=== PATIENT | male | born 1930 | race Caucasian/White ===

== ENCOUNTER → 2016-08-19 | Day surgery (SDC) | payer OTHER | END | disposition home or self-care (01) | LOC: FIMAGING 13:37 | PROVIDERS: ATTEND Internal Medicine | PROC: 3E0R3KZ Introduction of Other Diagnostic Substance into Spinal Canal, Percutaneous Approach (ICD-10-PCS; principal; 2016-08-19) | DX: M54.16 Radiculopathy, lumbar region (principal); M48.06 Spinal stenosis, lumbar region; M54.32 Sciatica, left side; I25.10 Atherosclerotic heart disease of native coronary artery without angina pectoris; Z95.1 Presence of aortocoronary bypass graft ==

== ENCOUNTER 2016-08-20 10:26 | Inpatient (IN) | payer OTHER ==
--- NOTE | 2016-08-20 10:56 | CPEKG ---
Heart Rate: 58 RR Interval: 1034 P-R Interval: 216 QRSD Interval: 136 QT Interval: 404 QTC Interval: 397 P Rock[place]: -7 QRS [place]: -59 T Wave Rock[place]: 152 EKG Severity - ABNORMAL ECG - EKG Impression: SINUS RHYTHM EKG Impression: VENTRICULAR TRIGEMINY EKG Impression: LEFT BUNDLE BRANCH BLOCK Electronically Signed By: Dinesh Fierro 20-Aug-2016 11:55:39
[2016-08-20 11:08] LABS: % IMMATURE GRANULYOCYTES 0.4 % (0.0-1.1); ABSOLUTE IMMATURE GRANULOCYTES 0.06 10^3/uL (0.00-0.10); ADD DIFF? NO; ADD MORPH? NO; ADD SCAN? NO; ATYPICAL LYMPHOCYTE FLAG 0 (0-99); FRAGMENT RBC FLAG 0 (0-99); HEMATOCRIT 46.6 % (40.0-51.0); HEMOGLOBIN 15.5 g/dL (13.7-17.5); LEFT SHIFT FLG 0 (0-99); LIPEMIA HEMOLYSIS FLAG 80 (0-99); MEAN CELL HEMOGLOBIN 30.6 pg (27.9-34.1); MEAN CELL HEMOGLOBIN CONCENTR. 33.3 g/dL (32.4-36.7); MEAN CELL VOLUME 91.9 fL (81.5-99.8); MEAN PLATELET VOLUME 9.9 fL (8.7-11.7); PLATELET CLUMPS FLAG 0 (0-99); PLATELET COUNT 294 10^3/uL (150-400); RED BLOOD CELL COUNT 5.07 10^6/uL (4.40-6.38); RED CELL DISTRIBUTION WIDTH 13.2 % (11.5-15.2)
[2016-08-20 11:23] LABS: ANION GAP 12 mEq/L (8-16); CALCIUM 9.8 mg/dL (8.5-10.4); CARBON DIOXIDE 24 mEq/l (22-31); CHLORIDE 102 mEq/L (97-110); CREATININE 1.3 mg/dL (0.7-1.3); GLOMERULAR FILTRATION RATE 52; GLUCOSE 122 mg/dL (70-100); POTASSIUM 4.8 mEq/L (3.5-5.2); SODIUM 138 mEq/L (134-144)
[2016-08-20 11:35] LABS: TROPONIN I 0.069 ng/mL (0-0.034)
[2016-08-20] MEDS ORDERED: ASPIRIN 81 MG CHEWABLE TAB PO ONE (11:42)
--- NOTE | 2016-08-20 11:53 | EDPHY ---
H & P Stated Complaint: chest pain this AM, now resolved Time Seen by Provider: 08/20/16 10:26 HPI/ROS: CHIEF COMPLAINT: Chest pain-resolved HISTORY OF PRESENT ILLNESS: The patient presents to the ED after an episode of resolved chest pain. The patient reports a sharp left substernal repeating chest pain that occurred earlier today. He initially attributed the symptoms to indigestion however they returned and were stronger. The patient does report that he had an epidural steroid injection done yesterday but otherwise has been asymptomatic. He is relatively active without symptoms of exertional chest pain or shortness of breath. The patient does have a history of a CABG 10 years ago and denies significant intervention since his surgery. The patient denies any history of fever, cough or congestion. He does have a history of an arrhythmia. REVIEW OF SYSTEMS: A comprehensive 10 point review of systems is otherwise negative aside from elements mentioned in the history of present illness. 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 - Physical Exam Exam: General Appearance: Alert, no distress Eyes: Pupils equal and round no pallor or injection ENT, Mouth: Mucous membranes moist Respiratory: There are no retractions, lungs are clear to auscultation Cardiovascular: Regular rate and rhythm Gastrointestinal: Abdomen is soft and nontender, no masses, bowel sounds normal Neurological: A&O, normal motor function, normal sensory exam, normal cranial nerves Skin: Warm and dry, no rashes, specifically no evidence of zoster Musculoskeletal: Neck is supple nontender Extremities: symmetrical, full range of motion Constitutional: Initial Vital Signs Temperature (C) 36.5 C 08/20/16 10:41 Heart Rate 64 08/20/16 10:41 Respiratory Rate 17 08/20/16 10:41 Blood Pressure 106/72 08/20/16 10:41 O2 Sat (%) 96 08/20/16 10:41 O2 Delivery Mode Room Air Allergies/Adverse Reactions: codeine Allergy (Verified 09/11/13 21:11) Home Medications: Medication Instructions Recorded CARVEDILOL 6.25 mg PO DAILY@0810/08/10 Calcium Carbonate [CALTRATE 600] 1,200 mg PO DAILY 10/08/10 Digoxin [Lanoxin 0.125 mg] 250 mcg PO MOTUWETHFRSA@179910/08/10 Ezetimibe/Simvastatin [Vytorin 1 each PO DAILY@179910/08/10 10-80 mg Tablet] Nitroglycerin [Nitrostat 0.4 mg 0.4 mg SL PRN PRN 10/08/10 (*)] Omeprazole [Prilosec 20 mg] 20 mg PO DAILY@179910/08/10 Ramipril [Altace 5mg (*)] 5 mg PO MOWEFR@89910/08/10 Tamsulosin HCl [Flomax 0.4 MG (*)] 0.4 mg PO DAILY@179910/08/10 Aspirin [Aspirin 325 mg (*)] 325 mg PO DAILY@179909/11/13 Carvedilol [Coreg (*)] 12.5 mg PO DAILY@179909/11/13 Mometasone 220Mcg Inhaler [Asmanex 2 puffs IH BID 09/11/13 Inh (*)] Multivitamins [Multivitamin (*)] 1 each PO DAILY@179909/11/13 Medical Decision Making - Diagnostics EKG Interpretation: EKG: Complete interpretation has been separately recorded in the [facility] archive. Summary impression: Sinus rhythm, rate 58, left bundle branch block, ventricular trigeminy, ST segment depression noted in the lateral leads Imaging Results: Imaging Impressions Chest X-Ray 08/20/16 11:04 Impression: 1. No acute pulmonary disease. 2. Consider chest two views when the patient's medical condition permits. ED Course/Re-evaluation: The patient presents to the ED after an episode of unprovoked chest pain at rest. The patient is noted to have an indeterminately elevated troponin. He has nonspecific changes noted on his EKG. He does have a history of a left bundle branch pattern noted on his prior EKG. The patient did receive a 325 mg dose of aspirin. He had a brief episode of recurrent chest pain in the emergency department. The patient will require admission to the hospital for observation and serial troponin testing. Consultation was made with the hospitalist service. The patient will be admitted by Dr. Joaquin Dexter. I re-evaluated the patient at noon. I spoke with him about his workup plans for admission. The patient is currently chest pain-free. He did have a recurrent brief episode of self-limited chest pain while in the emergency department. The patient has no evidence of a STEMI on his current EKG. He will be admitted for additional testing. Consultation with the patient's regular Cardiology service at [facility] will be deferred to the admitting hospitalist. Differential Diagnosis: Differential diagnosis considered includes acute coronary syndrome, herpes zoster, myofascial strain, pneumonia, pneumothorax - Data Points Medications Given: Discontinued Medications Aspirin (Aspirin) 324 mg PO EDNOW ONE Stop: 08/20/16 11:43 Last Admin: 08/20/16 11:47 Dose: Not Given Departure - Departure Disposition: [facility] Inpatient Acute Clinical Impression: Chest pain Qualifiers: Chest pain type: precordial pain Qualified Code(s): R07.2 - Precordial pain Condition: Good
[2016-08-20] MEDS ORDERED: ONDANSETRON 4 MG/2 ML VIAL IVP PRN (13:48)
[2016-08-20] MEDS ORDERED: oxyCODONE IR 5 MG TAB PO PRN (13:48)
[2016-08-20] MEDS ORDERED: ACETAMINOPHEN 325 MG TAB PO PRN (13:48)
[2016-08-20] MEDS ORDERED: ONDANSETRON DISINTEGRATING 4 MG TAB PO PRN (13:48)
[2016-08-20] MEDS ORDERED: METOCLOPRAMIDE 10 MG/2 ML VIAL IVP PRN (17:55)
[2016-08-20] MEDS ORDERED: GOLYTELY 4000 ML BTL PO ONE (17:55)
[2016-08-20] MEDS ORDERED: SIMVASTATIN PO SCH (18:00)
[2016-08-20] MEDS ORDERED: EZETIMIBE PO SCH (18:00)
[2016-08-20] MEDS ORDERED: NON-FORMULARY NEW DRUG (Omeprazole [Prilosec 20 Mg] 20 MG) PO SCH (18:00)
[2016-08-20] MEDS: DIGOXIN 125 MCG TAB PO SCH (18:07)
[2016-08-20] MEDS: CALCIUM CARB W/VIT D 500 MG TAB PO SCH (18:07)
[2016-08-20] MEDS: MULTIVITAMINS 1 EACH TAB PO SCH (18:07)
[2016-08-20] MEDS: ATORVASTATIN CALCIUM 20 MG TAB PO SCH (18:07)
[2016-08-20] MEDS: ASPIRIN 325 MG TAB PO SCH (18:07)
[2016-08-20] MEDS: PANTOPRAZOLE SODIUM 40 MG TAB PO SCH (18:07)
[2016-08-20] MEDS: CARVEDILOL 6.25 MG TAB PO SCH ×2 (18:07→18:08)
[2016-08-20] MEDS: EZETIMIBE 10 MG TAB PO SCH (18:07)
[2016-08-20] MEDS: TAMSULOSIN HCL 0.4 MG CAP PO SCH (18:07)
[2016-08-20] MEDS ORDERED: HEPARIN 10,000 UNIT/10 ML MDV IVP PRN (18:56)
[2016-08-20] MEDS ORDERED: HEPARIN 10,000 UNIT/10 ML MDV IVP ONE (18:56)
[2016-08-20] MEDS ORDERED: HEPARIN/DEXTROSE 500 ML IV SCH (19:00)
--- NOTE | 2016-08-20 19:32 | GHP ---
[f rep st] HISTORY AND PHYSICAL DATE OF ADMISSION: 08/20/2016 CHIEF COMPLAINT: Chest pain. HISTORY: This is an 85-year-old man who has a past medical history of coronary artery disease statu s post CABG, as well as a chronic wound of his right foot, who presents with the abrupt onset of jose guadalupe st pain this morning. He notes he was not doing anything particular that he can remember when he de veloped left-sided chest pain. He notes it was more over his pectoral muscle than over his sternum. It did not radiate anywhere. It began mildly, but then rapidly became severe. He rated it up to a 9/10. He did have some associated nausea and diaphoresis, as well as a sense of doom. He notes t hat when it started initially thought it was indigestion, and when he burped it did improve somewhat , but then it came back again more significantly. He took a nitroglycerin which he carries with him and this had no change in his symptoms. He then chewed an aspirin. He notes at this time the pain is still slightly present, but is much reduced, more like a 2/10. He denies ever having similar sy mptoms in the past. He otherwise has felt well recently and the only other concern that he mentions is that he did undergo a lumbar injection for sciatic pain yesterday that had to be canceled as the needle was placed into the subarachnoid space. PAST MEDICAL HISTORY: 1. Coronary artery disease. 2. Valvular heart disease. 3. Atrial fibrillation. 4. Chronic sciatic pain. 5. Chronic foot wound. PAST SURGICAL HISTORY: 1. CABG x2. 2. Mitral valve repair. 3. Hernia repair. SOCIAL HISTORY: The patient is . He is a nonsmoker, nondrinker, non-drug user. He is quite active. FAMILY HISTORY: Noncontributory. REVIEW OF SYSTEMS: A 10-point review of systems was obtained and was negative, except as per HPI. HOME MEDICATIONS: 1. Tamsulosin. 2. Omeprazole. 3. Nitroglycerin. 4. Multivitamin. 5. Mometasone. 6. Lisinopril. 7. Ezetimibe/simvastatin. 8. Digoxin. 9. Carvedilol. 10. Calcium and vitamin D. 11. Aspirin. ALLERGIES: Include codeine. PHYSICAL EXAMINATION: VITAL SIGNS: Blood pressure 132/70, heart rate 62, respiratory rate 19, O2 s aturations 100% on room air, temperature is 36.4. GENERAL APPEARANCE: This is an elderly man. He appears somewhat younger than stated age. He is awake and alert. In no acute distress. HEENT: [place]: Anicteric. ENT: Oropharynx clear, moist mucous membranes, JVD not elevated. CARDIOVASCULAR: Regular rate and rhythm. He does have a systolic murmur present, most prominently at the left uppe r sternal border. PULMONARY: Lung are clear to auscultation bilaterally. ABDOMEN: Soft, nontende r, nondistended. EXTREMITIES: No clubbing, cyanosis, or edema. SKIN: Warm, dry, well perfused. NEURO/PSYCH: The patient is oriented, appropriate, he is pleasant. CLINICAL DATA: Labs reviewed and notable for: 1. White blood cell count of 13.7. Troponin is 0.069. ProBNP of 1500. Glucose is 122. 2. EKG personally reviewed and interpreted shows sinus rhythm with a rate of 58. There is a left b undle branch block and ventricular trigeminy. 3. Chest x-ray: This was personally reviewed and interpreted and shows no acute findings. ASSESSMENT AND PLAN: An 85-year-old man with a history of coronary artery disease, presenting with chest pain. 1. Chest pain: Concerning for acute coronary syndrome, including unstable angina given history and that his initial troponin was mildly elevated. He will be admitted for acute coronary syndrome rul e out with serial troponins, EKGs, and telemetry monitoring. Cardiology will be consulted and can d ecide in the morning if he is more appropriate for coronary angiography versus a stress test. If hi s chest pain recurs, we will start heparin drip overnight. 2. Coronary artery disease: As per above, this has not been an issue for the patient for quite pravin e time. He states at least since his CABG which was many years ago. He is on statin, aspirin, and beta frederick at home, which will be continued. 3. Atrial fibrillation: EKG here personally reviewed interpreted showing sinus rhythm with left bu ndle branch block. He is on both a beta-frederick and digoxin, which will be continued. He is not ch ronically anticoagulated for this, other than full-dose aspirin, however. He does have a [id number] Sc score of 4 and anticoagulation is likely indicated if he can tolerate. 4. Chronic foot wound: He has been followed both by Podiatry and previously by the [facility]. We will ask for a Wound consultation while inhouse. 5. Hyperglycemia without a history of diabetes: We will check a hemoglobin A1c. 6. Gastroesophageal reflux disease: We will continue PPI. 7. Disposition: Observation status. Should he in fact have acute coronary syndrome, he will requi re a change to inpatient status at that point. 8. Code status: Patient states he would like to be full code. His would be his decision make r should he be unable to make decisions on his own. The patient is new to my care. Old records reviewed, summarized as per HPI and past medical history . Care plan reviewed with ER physician, including plans for monitoring on telemetry. /[id number]/MODL
[2016-08-20 19:47] LABS: % IMMATURE GRANULYOCYTES 0.6 % (0.0-1.1); ABSOLUTE IMMATURE GRANULOCYTES 0.08 10^3/uL (0.00-0.10); ADD DIFF? NO; ADD MORPH? NO; ADD SCAN? NO; ATYPICAL LYMPHOCYTE FLAG 10 (0-99); FRAGMENT RBC FLAG 0 (0-99); HEMATOCRIT 43.7 % (40.0-51.0); HEMOGLOBIN 14.6 g/dL (13.7-17.5); LEFT SHIFT FLG 0 (0-99); LIPEMIA HEMOLYSIS FLAG 80 (0-99); MEAN CELL HEMOGLOBIN 30.5 pg (27.9-34.1); MEAN CELL HEMOGLOBIN CONCENTR. 33.4 g/dL (32.4-36.7); MEAN CELL VOLUME 91.4 fL (81.5-99.8); MEAN PLATELET VOLUME 9.3 fL (8.7-11.7); PLATELET CLUMPS FLAG 0 (0-99); PLATELET COUNT 260 10^3/uL (150-400); RED BLOOD CELL COUNT 4.78 10^6/uL (4.40-6.38); RED CELL DISTRIBUTION WIDTH 13.2 % (11.5-15.2)
[2016-08-20 19:58] LABS: APTT 27.9 SEC (23.0-38.0); INR 1.05 (0.83-1.16); PROTIME(PATIENT) 13.6 SEC (12.0-15.0)
--- NOTE | 2016-08-20 20:21 | PDCARCONS ---
Cardiology Consult Reason for Consult: Chest pain Chief Complaint: Chest pain Requesting Physician: Dr. Yung History of Present Illness: 85 M with prior h.o. CABG and MV repair. This AM developed chest pain, described as left precordial. 10/20, no radiation. No relieving factors. Currently has mild to no pain (03/22), resting comfortably in bed. I was called ~ 7PM by Dr. Yung requesting consult on this patient due to positive troponin. is in room at time of this interview History Information - Allergies/Home Medication List Allergies/Adverse Reactions: codeine Allergy (Verified 09/11/13 21:11) Home Medications: Digoxin [Lanoxin 0.125 mg] 250 mcg PO MOTUWETHFRSA@179910/08/10 [Last Taken 11/27] Nitroglycerin [Nitrostat 0.4 mg (*)] 0.4 mg SL PRN PRN 10/08/10 [Last Taken 12/27] Omeprazole [Prilosec 20 mg] 20 mg PO DAILY@179910/08/10 [Last Taken 08/19/16] Tamsulosin HCl [Flomax 0.4 MG (*)] 0.4 mg PO DAILY@179910/08/10 [Last Taken 11/27] Aspirin [Aspirin 325 mg (*)] 325 mg PO DAILY@179909/11/13 [Last Taken 08/19/16] Mometasone 220Mcg Inhaler [Asmanex Inh (*)] 2 puffs IH BID 09/11/13 [Last Taken 08/20/16] Multivitamins [Multivitamin (*)] 1 each PO DAILY@179909/11/13 [Last Taken 08/19] Calcium Carb W/Vit D [Calcium Carb W/Vit D 500/200 (*)] 1,000 mg PO DAILY@12/27 [Last Taken 08/19/16] Carvedilol [Coreg (*)] 6.25 mg PO DAILY 08/20/16 [Last Taken 08/20/16] Carvedilol [Coreg (*)] 12.5 mg PO DAILY@08/20/16 [Last Taken 08/19/16] Ezetimibe/Simvastatin [Ezetimibe-Simvastatin 10-40 mg] 1 each PO DAILY@18 [Last Taken 08/19/16] Lisinopril [Zestril 5 mg (*)] 5 mg PO MWF@0900 08/20/16 [Last Taken 08/19/16] I have personally reviewed and updated: family history, medical history, social history (d) - Past Medical History coronary artery disease - Surgical History Reports: coronary bypass surgery - Social History Smoking Status: Never smoked Cardiac History - Cardiac History Past Cardiac History: CABG (MV repair) Physical Exam Temp Pulse Resp BP Pulse Ox 36.6 C 54 L 20 138/72 H 98 08/20/16 20:00 08/20/16 20:00 08/20/16 20:00 08/20/16 20:00 08/20/16 20:00 O2 (L/minute) 2 Constitutional: no apparent distress, appears nourished, not in pain Eyes: PERRL, anicteric sclera Ears, Nose, Mouth, Throat: moist mucous membranes (dd), hard of hearing Cardiovascular: regular rate and rhythym, no murmur, rub, or gallop Respiratory: no respiratory distress Gastrointestinal: normoactive bowel sounds, soft, non-tender abdomen Skin: warm Neurologic: AAOx3 Psychiatric: interacting appropriately Lab and Imaging 08/20/16 Unknown 08/20/16 Unknown WBC 13.74 10^3/uL (3.80-9.50) H 08/20/16 Unknown RBC 5.07 10^6/uL (4.40-6.38) 08/20/16 Unknown Hgb 15.5 g/dL (13.7-17.5) 08/20/16 Unknown Hct 46.6 % (40.0-51.0) 08/20/16 Unknown MCV 91.9 fL (81.5-99.8) 08/20/16 Unknown MCH 30.6 pg (27.9-34.1) 08/20/16 Unknown MCHC 33.3 g/dL (32.4-36.7) 08/20/16 Unknown RDW 13.2 % (11.5-15.2) 08/20/16 Unknown Plt Count 294 10^3/uL (150-400) 08/20/16 Unknown MPV 9.9 fL (8.7-11.7) 08/20/16 Unknown Neut % (Auto) 62.8 % (39.3-74.2) 08/20/16 Unknown Lymph % (Auto) 19.3 % (15.0-45.0) 08/20/16 Unknown [place] % (Auto) 13.5 % (4.5-13.0) H 08/20/16 Unknown Eos % (Auto) 3.5 % (0.6-7.6) 08/20/16 Unknown Baso % (Auto) 0.5 % (0.3-1.7) 08/20/16 Unknown Nucleat RBC Rel Count 0.0 % (0.0-0.2) 08/20/16 Unknown Absolute Neuts (auto) 8.63 10^3/uL (1.70-6.50) H 08/20/16 Unknown Absolute Lymphs (auto) 2.65 10^3/uL (1.00-3.00) 08/20/16 Unknown Absolute Monos (auto) 1.85 10^3/uL (0.30-0.80) H 08/20/16 Unknown Absolute Eos (auto) 0.48 10^3/uL (0.03-0.40) H 08/20/16 Unknown Absolute Basos (auto) 0.07 10^3/uL (0.02-0.10) 08/20/16 Unknown Absolute Nucleated RBC 0.00 10^3/uL (0-0.01) 08/20/16 Unknown Immature Gran % 0.4 % (0.0-1.1) 08/20/16 Unknown Immature Gran # 0.06 10^3/uL (0.00-0.10) 08/20/16 Unknown PT 13.6 SEC (12.0-15.0) 08/20/16 19:00 INR 1.05 (0.83-1.16) 08/20/16 19:00 APTT 27.9 SEC (23.0-38.0) 08/20/16 19:00 Sodium 138 mEq/L (134-144) 08/20/16 Unknown Potassium 4.8 mEq/L (3.5-5.2) 08/20/16 Unknown Chloride 102 mEq/L (97-110) 08/20/16 Unknown Carbon Dioxide 24 mEq/l (22-31) 08/20/16 Unknown Anion Gap 12 mEq/L (8-16) 08/20/16 Unknown BUN 18 mg/dL (7-23) 08/20/16 Unknown Creatinine 1.3 mg/dL (0.7-1.3) 08/20/16 Unknown Estimated GFR 52 08/20/16 Unknown Glucose 122 mg/dL (70-100) H 08/20/16 Unknown Calcium 9.8 mg/dL (8.5-10.4) 08/20/16 Unknown Troponin I 0.069 ng/mL (0-0.034) H 08/20/16 Unknown NT-Pro-B Natriuret Pep 1540 pg/mL (0-450) H 08/20/16 Unknown Visualized and Interpreted EKG results: Yes EKG additional interpertation: NSR, IVCD with lateral STT changes (ST depression new, QRS wider than prior ECG) A/P Assessment: CAD NSTEMI Recent attempted epidural injection by IR with breach of subarachnoid space Plan: -Continue ASA -I have talked with neurologist Dr. Sanders. Have paged IR but not heard back from them. Acc to neurology if patient unstable, OK to use heparin + dual antiplatelet. Will hold off on heparin for now since patient stable and almost pain free. Will keep NPO for now, anticipating cor angio in AM -ASA for now -Start low dose BB Have d.w. Dr. Yung, Dr. Avial, Dr. Sanders and patient's nurse
[2016-08-20] MEDS: MOMETASONE 220MCG INHALER IH SCH (20:42)
[2016-08-21 05:46] LABS: % IMMATURE GRANULYOCYTES 0.6 % (0.0-1.1); ABSOLUTE IMMATURE GRANULOCYTES 0.09 10^3/uL (0.00-0.10); ADD DIFF? NO; ADD MORPH? NO; ADD SCAN? NO; ANION GAP 5 mEq/L (8-16); ATYPICAL LYMPHOCYTE FLAG 0 (0-99); CALCIUM 9.6 mg/dL (8.5-10.4); CARBON DIOXIDE 29 mEq/l (22-31); CHLORIDE 102 mEq/L (97-110); CHOLESTEROL 105 mg/dL (140-220); CHOLESTEROL/HDL RATIO 4.04 RATIO (1.00-4.97); CREATININE 1.3 mg/dL (0.7-1.3); FRAGMENT RBC FLAG 0 (0-99); GLOMERULAR FILTRATION RATE 52; GLUCOSE 95 mg/dL (70-100); HEMATOCRIT 43.6 % (40.0-51.0); HEMOGLOBIN 14.6 g/dL (13.7-17.5); HIGH DENSITY LIPOPROTEIN 26 mg/dL (40-65); LDL/HDL RATIO 1.54 RATIO (1.00-3.64); LEFT SHIFT FLG 0 (0-99); LIPEMIA HEMOLYSIS FLAG 80 (0-99); LOW DENSITY LIPOPROTEIN 40 mg/dL (80-100); MEAN CELL HEMOGLOBIN 30.9 pg (27.9-34.1); MEAN CELL HEMOGLOBIN CONCENTR. 33.5 g/dL (32.4-36.7); MEAN CELL VOLUME 92.4 fL (81.5-99.8); MEAN PLATELET VOLUME 10.2 fL (8.7-11.7); NON-HIGH DENSITY LIPOPROTEIN 79 mg/dL (90-129); PLATELET CLUMPS FLAG 0 (0-99); PLATELET COUNT 253 10^3/uL (150-400); POTASSIUM 4.9 mEq/L (3.5-5.2); RED BLOOD CELL COUNT 4.72 10^6/uL (4.40-6.38); RED CELL DISTRIBUTION WIDTH 13.3 % (11.5-15.2); SODIUM 136 mEq/L (134-144); TRIGLYCERIDE 198 mg/dL (40-150); VERY LOW DENSITY LIPOPROTEINS 39 mg/dL (8-25)
[2016-08-21] MEDS: MOMETASONE 220MCG INHALER IH SCH ×2 (08:46→19:20)
[2016-08-21] MEDS ORDERED: ENOXAPARIN 40 MG/0.4 ML SYR SC SCH ×2 (09:00)
[2016-08-21] MEDS ORDERED: LIDOCAINE 1% 300 MG/30 ML SDV ONE (09:38)
[2016-08-21] MEDS ORDERED: VERAPAMIL 5 MG/2 ML VIAL ONE (09:39)
[2016-08-21] MEDS ORDERED: HEPARIN 10,000 UNIT/10 ML MDV ONE (09:39)
[2016-08-21] MEDS ORDERED: MIDAZOLAM 2 MG/2 ML VIAL ONE (09:39)
[2016-08-21] MEDS ORDERED: IOPAMIDOL (ISOVUE-370) 150 ML BTL IV ONE ×2 (09:39→10:54)
[2016-08-21] MEDS ORDERED: fentaNYL 100 MCG/2 ML INJ ONE (09:39)
--- NOTE | 2016-08-21 09:51 | CPEKG ---
Heart Rate: 59 RR Interval: 1017 P-R Interval: 242 QRSD Interval: 138 QT Interval: 412 QTC Interval: 409 P [place]: -40 QRS [place]: -57 T Wave [place]: 143 EKG Severity - ABNORMAL ECG - EKG Impression: SINUS RHYTHM EKG Impression: MULTIPLE VENTRICULAR PREMATURE COMPLEXES EKG Impression: FIRST DEGREE AV BLOCK EKG Impression: LEFT BUNDLE BRANCH BLOCK Electronically Signed By: Fabien Salazar 21-Aug-2016 09:50:47
--- NOTE | 2016-08-21 10:19 | SOAPPROG ---
[facility] Progress Note Assessment/Plan: Assessment: 1. Non STEMI myocardial infarction with troponin of 20. 2. Coronary disease status post 2 vessel coronary bypass grafting. 3. History of mitral valve repair. 4. Paroxysmal Atrial fibrillation Impression: Troponin continues to increase now at 25 with history of stuttering chest pain/angina yesterday. Per Dr. Marques and interventional Radiology and Neurology patient has been cleared for use of anticoagulation including sustained dual antiplatelet therapy. Will plan for diagnostic/ therapeutic angiogram this morning. Risks and benefits of this approach were discussed with the patient his . We will proceed. Pending results considerations for further medical therapy. 08/21/16 10:20 Subjective: Minimal discomfort overnight. This morning he is free of shortness of breath PND orthopnea. Objective: Medications Generic Name Dose Route Start Last Admin Trade Name Freq PRN Reason Stop Dose Admin Aspirin 325 mg 08/20/16 18:00 08/20/16 18:07 Aspirin PO 02/16/17 17:59 325 mg DAILY@1800 [facility] Carvedilol 12.5 mg 08/20/16 18:00 08/20/16 18:08 Coreg PO 02/16/17 17:59 12.5 mg DAILY@18 [facility] Atorvastatin Calcium 20 mg 08/20/16 18:00 08/20/16 18:07 Lipitor PO 02/16/17 17:59 20 mg DAILY@1800 [facility] Carvedilol 6.25 mg 08/21/16 09:00 08/20/16 18:07 Coreg PO 02/17/17 08:59 6.25 mg DAILY [facility] Digoxin 250 mcg 08/20/16 18:00 08/20/16 18:07 Lanoxin PO 02/16/17 17:59 250 mcg MOTUWETHFRSA@1800 [facility] Ezetimibe 10 mg 08/20/16 18:00 08/20/16 18:07 Zetia PO 02/16/17 17:59 10 mg DAILY@1800 [facility] Lisinopril 5 mg 08/22/16 09:00 Zestril PO 02/18/17 08:59 MWF@0900 [facility] Vital Signs Temp Pulse Resp BP Pulse Ox 36.8 C 58 L 16 110/58 L 91 L 08/21/16 08:30 08/21/16 08:30 08/21/16 08:30 08/21/16 08:30 08/21/16 08:30 Laboratory Results 08/21/16 04:00 08/21/16 04:00 08/20/16 08/21/16 08/22/16 05:59 05:59 05:59 Intake Total 700 Balance 700 PT 13.6 SEC (12.0-15.0) 08/20/16 19:00 INR 1.05 (0.83-1.16) 08/20/16 19:00 Laboratory Tests 08/20/16 08/20/16 08/21/16 11:00 17:20 00:05 Troponin I 0.069 H 7.880 H 25.200 H NT-Pro-B Natriuret Pep 1540 H LDL Cholesterol, Calc 08/21/16 04:00 Troponin I NT-Pro-B Natriuret Pep LDL Cholesterol, Calc 40 L Physical Exam - Physical Exam General Appearance: alert, no apparent distress EENT: PERRL/EOMI Neck: non-tender, full range of motion Respiratory: chest non-tender, lungs clear Cardiac/Chest: normal peripheral pulses, regular rate, rhythm, No edema, No gallop, No JVD Peripheral Pulses: 1+: carotid (R), carotid (L), dorsalis-pedis (R), dorsalis- pedis (L), 2+: femoral (R), femoral (L) Abdomen: normal bowel sounds, non-tender Back: Normal inspection Skin: normal color, warm/dry, No rash Lymphatic: no adenopathy Extremities: normal range of motion, non-tender, No pedal edema Neuro/Psych: no motor/sensory deficits, alert, normal mood/affect, oriented x 3 ICD10 Worksheet Patient Problems: Problems Problem Status Onset Cellulitis and abscess of foot Acute Chest pain Acute Review of Systems - Review of Systems Constitutional: denies: chills, fever EENTM: no symptoms reported Respiratory: no symptoms reported Cardiac: no symptoms reported, chest pain. denies: irregular heart rate, lightheadedness Gastrointestinal/Abdominal: no symptoms reported Genitourinary: no symptoms Musculoskelatal: no symptoms Skin: no symptoms Neurological: no symptoms Hematologic/Lymphatic: no symptoms reported Immunologic/allergic: no symptoms reported Past Medical History - Personal History Current Tetanus/Diphtheria Vaccine: No Current Tetanus Diphtheria and Acellular Pertussis (TDAP): No Tetanus Vaccine Date: 2004 - Medical/Surgical History Hx Asthma: Yes Hx Chronic Respiratory Disease: No Hx Cardiac Disease: Yes Hx Diabetes: No Hx Renal Disease: No Hx Alcoholism: No Hx Cirrhosis: No Hx HIV/AIDS: No Hx Splenectomy or Spleen Trauma: No Other PMH: 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
[2016-08-21] MEDS ORDERED: BIVALIRUDIN 250 MG/5 ML VIAL IV ONE (10:21)
[2016-08-21] MEDS ORDERED: NITROGLYCERIN 1,500 MCG/15 ML VIAL MISC ONE (10:52)
[2016-08-21] MEDS ORDERED: CLOPIDOGREL BISULFATE 75 MG TAB ONE (11:02)
[2016-08-21] MEDS ORDERED: ASPIRIN 325 MG TAB ONE (11:02)
--- NOTE | 2016-08-21 11:06 | PDDXCAT ---
Diagnostic Cath Note - . Date: 08/21/16 Paperboard Machine Operator: Austin Indication: other (Non-Q-wave myocardial infarction) - Procedure Access: right groin Procedure: left heart catheterization, coronary angiography - Materials Left Heart Cath size: 6F Left Heart Cath materials: standard multipack (JL4, JR4, pigtail) - Findings-Left Heart Catheterization LM: Unobstructed LAD: 100% occluded LCX: Unobstructed RCA: Dominant: Unobstructed with luminal irregularities Ramus: 100% occluded rSVG: Vein graft to the ramus intermedius with subtotal stenosis in the body of the graft with thrombus seen distally. BAEZA: Widely patent to the LAD Complications: None Estimated blood loss: <50ml Closure method: Angioseal Assessment: NSTEMI myocardial infarction with thrombotic occlusion of a degenerative vein graft to the ramus. Patent mammary artery to the LAD. Patent [place] right coronary artery and circumflex. Plan: Urgent PCI of the vein graft. Intervention: Procedure: PCI and stenting of the degenerated vein graft to the ramus intermedius with filter wire support. After reviewing diagnostic angiogram shows like to proceed with urgent PCI. Patient was anticoagulated with heparin. Therapeutic ACT was confirmed. A 6 Congol[place] left coronary bypass grafting catheter guide catheter was used to intubate the vein graft. Using a 0.014 2.5-3.5 filter wire the vein graft stenosis was crossed the filter wire basket was deployed distally. The lesion was primarily stented with a 2.75 x 32 mm Rebel bare metal stent. Filter wire was withdrawn. Patient was administered intra of vein graft nitroglycerin. Initially following procedure there was spasm of the distal ramus. This resolved with nitroglycerin. Final orthogonal angiograms revealed CELESTINA grade 3 flow with no complication. Conclusions: Non STEMI myocardial infarction with occlusion of the vein graft to the ramus intermedius status post successful PCI and stenting with a bare metal stent. Dual antiplatelet therapy required for 14-30 days. Aggressive secondary prevention to continue. Patient Problems: Problems Problem Status Onset Chest pain Acute Cellulitis and abscess of foot Acute
--- NOTE | 2016-08-21 11:41 | ECHO ---
[id number] + + [address] : : [place] [address] : : [phone] + + Adult Echocardiographic Report + ----+ :Name: SHELLY MONTGOMERY LStudy Date: 08/21/2016 08:00 AM : : Hospital Admission Number: [id number] Location: 202: :: 1930 Gender: Male Height: 72 in : :Age: 85 yrs Race: WH Weight: 147 lb : :Reason For Study: Chest pain/elevated troponin : : BSA: 1.9 meters2 : :History: CABG/MV repair : + ----+ MMode/2D Measurements \T\ Calculations IVSd: 0.74 cm LVIDd: 6.5 cm FS: 34.4 % Ao root diam: LVPWd: 0.72 cm LVIDs: 4.3 cm EDV(Teich): 3.7 cm 218.2 ml LA dimension: ESV(Teich): 82.3 ml4.5 cm EF(Teich): 62.3 % LVOT diam: 2.6 cmLVLd ap4: 8.5 cm SV(MOD-sp4): LVOT area: EDV(MOD-sp4): 74.0 ml 5.4 cm2 165.0 ml LVLs ap4: 7.7 cm ESV(MOD-sp4): 91.0 ml EF(MOD-sp4): 44.8 % Normal Measurement Values: + + :LVIDd (3.5-5.7cm) IVSd (0.6-1.1cm) LVPWd (0.6-1.1cm) Aortic Root (2.0-3.7cm)Left Atrium (1.5-4.0cm): :LV Vol(d) (76-115ml) LV Vol(s) (29-48ml) Ejec Fraction (50-65%)PV Yunior (0.6- 1.2m/s) TV Yunior (0.4-1.0m/s) : :MV E Yunior (0.8-1.0m/s)MV A Yunior (0.3-1.0m/s)LVOT Yunior (0.7-1.2m/s) Asc Ao Yunior ( 0.9-1.8m/s) : + + Doppler Measurements \T\ Calculations MV E max yunior: MV V2 mean: MV P1/2t max yunior: Ao mean P.6 cm/sec 95.3 cm/sec 143.9 cm/sec 11.0 mmHg MV A max yunior: MV mean PG: MV P1/2t: 199.0 msec Ao V2 mean: 120.4 cm/sec 4.1 mmHg MVA(P1/2t): 1.1 cm2 154.7 cm/sec MV E/A: 0.92 MV V2 VTI: MV dec slope: Ao V2 VTI: MV dec time: 56.4 cm 45.2 cm 0.64 sec MVA(VTI): 1.5 [id number] cm/sec2 VLAE(I,D): 1.9 cm2 AI max yunior: LV V1 max: SV(LVOT): 85.4 ml 398.2 cm/sec 64.2 cm/sec AI max PG: LV V1 max P.4 mmHg 1.6 mmHg AI dec slope: LV V1 mean P.91 mmHg 170.6 cm/sec2 LV V1 mean: AI P1/2t: 44.6 cm/sec 683.5 msec LV V1 VTI: 15.7 cm Left Ventricle The left ventricle is mildly dilated. There is normal left ventricular wall thickness. EF estimate is 40%. Septal motion is consistent with conduction abnormality. Right Ventricle The right ventricle is normal in size and function. Atria The left atrium is mildly dilated. Right atrial size is normal. The interatrial septum is intact with no evidence for an atrial septal defect. Mitral Valve There is mild mitral regurgitation. An annuloplasty ring is noted in the mitral position. Tricuspid Valve Normal tricuspid valve. There is mild tricuspid regurgitation. Aortic Valve Severe AV calcification. The aortic valve is trileaflet. AV dimension less index is .34. Mild valvular aortic stenosis. Mild aortic regurgitation. Pulmonic Valve The pulmonic valve is normal in structure and function. There is no pulmonic valvular regurgitation. Great Vessels The aortic root is normal size. Pericardium/Pleural There is no pericardial effusion. Conclusion A complete two-dimensional transthoracic echocardiogram was performed (2D, M-mode, Doppler and color flow Doppler). The left ventricle is mildly dilated. EF estimate is 40%. Septal motion is consistent with conduction abnormality. The left atrium is mildly dilated. There is mild mitral regurgitation. An annuloplasty ring is noted in the mitral position. There is mild tricuspid regurgitation. Severe AV calcification. Mild valvular aortic stenosis. Mild aortic regurgitation. Final Reading Physician: Collette Duran signed on 08/21/2016 11:39 AM Ordering Physician: Joaquin Dexter Performed By: Linda Conway RDCS
[2016-08-21] MEDS ORDERED: ONDANSETRON 4 MG/2 ML VIAL ONE (11:43)
--- NOTE | 2016-08-21 12:22 | CPEKG ---
Heart Rate: 79 RR Interval: 759 QRSD Interval: 136 QT Interval: 444 QTC Interval: 510 QRS Mcfarland: -62 T Wave Mcfarland: 119 EKG Severity - ABNORMAL ECG - EKG Impression: A-FLUTTER W/ PREDOM 3:1 AV BLOCK, A-RATE 245 EKG Impression: LEFT BUNDLE BRANCH BLOCK Electronically Signed By: Fabien Salazar 21-Aug-2016 18:33:41
[2016-08-21] MEDS ORDERED: NITROGLYCERIN 0.4 MG BTL SL PRN (12:23)
[2016-08-21] MEDS ORDERED: LORazepam 2 MG/ML INJ IVP PRN (12:23)
[2016-08-21] MEDS ORDERED: TEMAZEPAM 15 MG CAP PO PRN (12:23)
[2016-08-21] MEDS ORDERED: ATROPINE SULFATE 1 MG/10 ML SYR IVP PRN (12:23)
[2016-08-21] MEDS ORDERED: CLOPIDOGREL BISULFATE 75 MG TAB PO ONE (12:23)
--- NOTE | 2016-08-21 15:16 | WOCRNPDOC ---
WOCRN Advanced Assessment Note - Skin Integrity Problem, Advanced Assess Right Foot Dressing Type: Band Aid, Mepilex (non-bordered foam) Dressing Description: Clean/Dry, Intact Exudate Amount: Scant Exudate Color: Reddish/Yellow Exudate Characteristic(s): Serosanguinous Integumentary Issue Intervention: Visualized Under Dressing Tamiko Wound Tissue: Hyperkeratotic Tamiko Wound Swelling: None Wound Bed Color: Red Wound Bed Constitution: Smooth Tissue Site Odor: None Site Measurement - Head-to-Toe Length X Width X Depth (cm): R 1st metatarsal: 0.8cmx0.2cmx0.2cm. R 3rd metatarsal: 0.2cmx0.1cmx0.1cm Skin Integrity Problem Comment: Two, discrete, pressure-related wounds noted on plantar aspect of patient's R foot. While the appearance is indicative of diabetic foot ulcer, patient does have bony deformity in this foot which may have resulted in pressure injuries from shoes/walking. He does not have a dx of diabetes, and A1C results are pending. He reports being to many podiatrists and to the wound healing center treatment, but also says no one has been able to help. He was referred to [facility] to be fitted for a specialty shoe that off- loads these wounds, but says the shoes resulted in another injury to this foot. This author explained that going forward, these wounds will not heal unless the areas of pressure are off-loaded. He said he would be open to returning to [facility] after discharge for a re-evaluation of the shoes they made for him. Nursing may continue w/ existing dressing of Mepilex foam and Band-aid, changing q3 days and PRN. Wound care does not need to follow this patient ongoing. Report given to scrap metal processing workerJAZMIN Orozco.
--- NOTE | 2016-08-21 17:22 | HOSPPROG ---
Hospitalist Progress Note Assessment/Plan: 85 yo M with PMH of CAD s/p CABG presenting with chest pain found to have NSTEMI # NSTEMI: with trop peaking at 25 but with sxs improved since admission yesterday. Taken to produce laborer today and found to have stenosis of vein graft to ramus intermedius that is now s/p PCI with BMS placement. He is doing well now post cath and has no current pain, HD stable, groin site clean and w/o significant pain or swelling. Monitoring overnight on tele. will need 14-30 days of dual antiplatelet therapy after dc. # CAD: as above, aggressive secondary prevention also needed, lipid panel checked and found to have LDL of 40. Continue asa, coreg, atorvastatin and will add plavix for the next 2-4 weeks. # a fib/flutter: most recent ecg personally reviewed and appears c/w flutter with underlying LBBB, rate controlled on BB/digoxin. He has not been on AC previously but has CHADS-vasc of 4 and this should be considered as an OP. Will defer to cardiology. # chronic foot wound: appreciate wound care eval, will continue f/u with podiatry/wound clinic and current dressing changes # htn: bp well controlled on lisinopril/coreg # HLD: continue statin/zetia # BPH: continue tamsulosin # IP status, will need > 48 hours stay for eval/mgmt of above Care plan reviewed with cardiology. Reviewed care plan with patients present at bedside. Subjective: no significant overnight events, went to cath today, now chest pain free and feeling well Objective: Vital Signs Temp Pulse Resp BP Pulse Ox 36.6 C 78 12 113/58 L 93 08/21/16 16:28 08/21/16 16:28 08/21/16 16:28 08/21/16 16:28 08/21/16 16:28 Laboratory Results 08/21/16 04:00 08/21/16 04:00 08/20/16 08/21/16 08/22/16 05:59 05:59 05:59 Intake Total 700 700 Output Total 0 Balance 700 700 PT 13.6 SEC (12.0-15.0) 08/20/16 19:00 INR 1.05 (0.83-1.16) 08/20/16 19:00 awake alert nad anicteric op clear rrr systolic murmur cta b soft nt nd no cce warm dry well perfused oriented appropriate - Time Spent With Patient Time Spent with Patient: greater than 35 minutes Time Spent with Patient: Greater than 35 minutes spent on this patients care, greater than 50% of time spent counseling, educating, and coordinating care regarding the above mentioned plan. ICD10 Worksheet Patient Problems: Problems Problem Status Onset Cellulitis and abscess of foot Acute Chest pain Acute
[2016-08-21] MEDS: DIGOXIN 125 MCG TAB PO SCH (17:24)
[2016-08-21] MEDS: CALCIUM CARB W/VIT D 500 MG TAB PO SCH (17:24)
[2016-08-21] MEDS: ASPIRIN 325 MG TAB PO SCH (17:25)
[2016-08-21] MEDS: EZETIMIBE 10 MG TAB PO SCH (17:25)
[2016-08-21] MEDS: TAMSULOSIN HCL 0.4 MG CAP PO SCH (17:25)
[2016-08-21] MEDS: MULTIVITAMINS 1 EACH TAB PO SCH (17:25)
[2016-08-21] MEDS: PANTOPRAZOLE SODIUM 40 MG TAB PO SCH (17:25)
[2016-08-21] MEDS: CARVEDILOL 6.25 MG TAB PO SCH (17:25)
[2016-08-21] MEDS: ATORVASTATIN CALCIUM 20 MG TAB PO SCH (17:25)
[2016-08-22 00:22] LABS: HEMOGLOBIN A1C 6.2 % (4.0-6.0)
[2016-08-22 05:02] LABS: % IMMATURE GRANULYOCYTES 0.3 % (0.0-1.1); ABSOLUTE IMMATURE GRANULOCYTES 0.04 10^3/uL (0.00-0.10); ADD DIFF? NO; ADD MORPH? NO; ADD SCAN? NO; ATYPICAL LYMPHOCYTE FLAG 10 (0-99); FRAGMENT RBC FLAG 0 (0-99); HEMATOCRIT 41.8 % (40.0-51.0); HEMOGLOBIN 13.9 g/dL (13.7-17.5); LEFT SHIFT FLG 0 (0-99); LIPEMIA HEMOLYSIS FLAG 80 (0-99); MEAN CELL HEMOGLOBIN 30.6 pg (27.9-34.1); MEAN CELL HEMOGLOBIN CONCENTR. 33.3 g/dL (32.4-36.7); MEAN CELL VOLUME 92.1 fL (81.5-99.8); MEAN PLATELET VOLUME 9.9 fL (8.7-11.7); PLATELET CLUMPS FLAG 10 (0-99); PLATELET COUNT 237 10^3/uL (150-400); RED BLOOD CELL COUNT 4.54 10^6/uL (4.40-6.38); RED CELL DISTRIBUTION WIDTH 13.6 % (11.5-15.2)
[2016-08-22 05:15] LABS: ALBUMIN 3.1 g/dL (3.5-5.0); ANION GAP 8 mEq/L (8-16); ASPARTATE AMINOTRANSFERASE 107 IU/L (17-59); BILIRUBIN,TOTAL 0.5 mg/dL (0.1-1.4); CALCIUM 9.7 mg/dL (8.5-10.4); CARBON DIOXIDE 26 mEq/l (22-31); CHLORIDE 103 mEq/L (97-110); CREATININE 1.3 mg/dL (0.7-1.3); GLOMERULAR FILTRATION RATE 52; GLUCOSE 75 mg/dL (70-100); LACTATE DEHYDROGENASE 1014 IU/L (313-618); MAGNESIUM 2.1 mg/dL (1.6-2.3); POTASSIUM 4.4 mEq/L (3.5-5.2); SODIUM 137 mEq/L (134-144)
[2016-08-22] MEDS: MOMETASONE 220MCG INHALER IH SCH (08:17)
--- NOTE | 2016-08-22 08:56 | CPEKG ---
Heart Rate: 59 RR Interval: 1017 P-R Interval: 247 QRSD Interval: 132 QT Interval: 436 QTC Interval: 432 P Riverside: 0 QRS Riverside: -61 T Wave Riverside: 134 EKG Severity - ABNORMAL ECG - EKG Impression: SINUS RHYTHM EKG Impression: VENTRICULAR PREMATURE COMPLEX EKG Impression: Compared to EKG 08/21/2016 sinus rhythm has replaced atrial fibrillation. EKG Impression: FIRST DEGREE AV BLOCK EKG Impression: NONSPECIFIC IVCD WITH LAD EKG Impression: LVH WITH SECONDARY REPOLARIZATION ABNORMALITY Electronically Signed By: Chandrakant Avila 22-Aug-2016 10:39:10
[2016-08-22] MEDS ORDERED: CLOPIDOGREL BISULFATE 75 MG TAB PO SCH (09:00)
[2016-08-22] MEDS ORDERED: LISINOPRIL 5 MG TAB PO SCH (09:00)
[2016-08-22] MEDS: CARVEDILOL 6.25 MG TAB PO SCH (09:09)
[2016-08-22] MEDS ORDERED: NITROGLYCERIN 0.4 MG BTL SL PRN (09:50)
[2016-08-22 11:29] VITALS: BP 119/48; PULSE 58; RESP 6; TEMP 98.4; O2SAT 95
--- NOTE | 2016-08-22 11:48 | PDDCSUM ---
Discharge Summary Discharge Summary: Dates of service 08/20-08/22/16 Discharge diagnosis: # NSTEMI # CAD # a fib/flutter # chronic foot wound # htn # hld # bph Consultations: cardiology Procedures performed: cardiac angio with PCI to graft, echo Hospital course by problem: # NSTEMI: s/p PCI with BMS placement. He is doing well now post cath and has no current pain, HD stable, groin site clean and w/o significant pain or swelling. Monitoring overnight on tele. will complete 30 days of dual antiplatelet therapy after dc. # CAD: as above, aggressive secondary prevention also needed, lipid panel checked and found to have LDL of 40. Continue asa, coreg, atorvastatin and will add plavix for the next 2-4 weeks. # a fib/flutter: most recent ecg personally reviewed and appears c/w flutter with underlying LBBB, rate controlled on BB/digoxin. He has not been on AC previously but has CHADS-vasc of 4 and this should be considered as an OP. Will defer to cardiology and they plan to see him in f/u to discuss this. # chronic foot wound: appreciate wound care eval, will continue f/u with podiatry/wound clinic and current dressing changes # htn: bp well controlled on lisinopril/coreg # HLD: continue statin/zetia # BPH: continue tamsulosin Dispo: dc home F/u with PCP, cardiology > 35 min spent in dc more than half in coordination of care
--- NOTE | 2016-08-22 12:24 | PDCARPN ---
Cardiology Progress Note Chief Complaint: Patient reports he wants to go home. Assessment/Plan: Assessment: 1st day that I have seen this patient. 85-year-old male with history of CABG mitral valve repair [address] Joshi, paroxysmal atrial fibrillation, chronic sciatic machado (lumbar injection on 08/19 that was aborted due to placing needle in subarachnoid space), chronic wound to right foot. Admitted on 08/20/2016 for chest pressure pain. Electrocardiogram showing left bundle branch block, elevated troponin levels on 08/20, but no chest pain. Due to recent spinal injection, cardiac catheterization was held until 08/21 troponin levels raise to 25. Cardiac catheterization showed 100% occluded LAD, unobstructed RCA, 100% occluded RCA, vein graft to ramus intermedius subtotal stenosis in the body of the graft with thrombus seen distally. Widely patent BAEZA to LAD. PCI was performed to SVG to ramus, with a 2.75 x 32 mm Rebel BMS comma no complications. Echocardiogram done on 08/21/2016 showed LV is mildly dilated with EF of 40% septal motion consistent conduction abnormality. LA was mildly dilated, mild MR, angioplasty ring noted in the mitral position with mild TR, severe aortic valve calcification, mild , mild AI. At this time, patient reports no further episodes of chest pain or pressure since PCI. He has been started on dual anti-platelet therapy, report with no bleeding issues, no neuro deficits. Continuous cardiac monitoring shows that he is in sinus rhythm, occasional premature ventricular contraction, no malignant arrhythmias or pauses noted. Patient has been up in walking the unit without any difficulties. Voices no complaints. Today's 12 lead electrocardiogram shows sinus rhythm with first-degree AV block, nonspecific IVCD with left anterior fascicular block. Plan: 1. NSTEMI: No further episodes of chest pressure since PCI. Due to recent spinal injection patient received a bare metal stent. He has been started on dual anti-platelet therapy of aspirin and Plavix. No bleeding issues. Will need at least dual anti-platelet therapy for at least minimum of 14-30 days. Patient on carvedilol and lisinopril. 2. Ischemic cardiomyopathy: EF 40%, patient appears euvolemic, no signs of heart failure. Continue on carvedilol and lisinopril 3. Paroxysmal atrial fibrillation: Patient currently in sinus rhythm Patient on carvedilol and digoxin. Patient does have a [id number] score of 4, but with recent spinal injection, and starting on dual anti-platelet therapy, will hold off on starting him on full anticoagulation at this time. Will re-evaluate in outpatient setting. 4. Hypertension: Well controlled on current medication regime. No changes. 5. Hyperlipidemia: On statin and Zetia. Patient being discharged today, we have discussed the importance of medication compliance he, especially after recent BMS implantation into SVG to ramus. We have discussed post discharge instructions including activity restrictions, monitoring for signs of infection, and follow-up. Patient has a an appointment scheduled with Dr. Mcqueen, his primary master dyer, next Monday. 08/22/16 12:21 Subjective: Patient denies of any chest pain, shortness of breath, palpitations, lightheadedness, near-syncope or syncopal events when he up in walking Reviewed/Discussed With: hospitalist (Dr Dexter), other (Dr Salas) Objective: Vital Signs (8 Hrs) Temp Pulse Resp BP Pulse Ox 08/22/16 11:27 36.9 C 58 L 6 L 119/48 L 95 08/22/16 09:28 57 L 20 90 L 08/22/16 07:34 36.7 C 62 12 121/59 H 90 L Intake/Output (24 Hrs) 08/21/16 08/22/16 08/23/16 05:59 05:59 05:59 Intake Total 400 Balance 400 Intake: Oral (ml) 400 Result Diagrams: 08/22/16 03:49 08/22/16 03:49 - Physical Exam Constitutional: healthy appearing, no apparent distress Ears, Nose, Mouth, Throat: moist mucous membranes Cardiovascular: regular rate and rhythm, no rubs, systolic murmur ( 2/6 right upper chest.), jugular vein distention, No carotid bruit Peripheral Pulses: 2+: carotid (R), carotid (L), dorsalis-pedis (R), dorsalis- pedis (L) Respiratory: clear to auscultate bilat, no crackles, no wheezes Gastrointestinal: normoactive bowel sounds, no masses Skin: warm, no edema, other ( Dressing to right foot comma clean dry and intact.) Neurologic: AAOx3 Psychiatric: cooperative, interactive, following commands ICD10 Worksheet Patient Problems: Problems Problem Status Onset Cellulitis and abscess of foot Acute Chest pain Acute
--- NOTE | 2016-08-22 13:11 | PDIAF ---
- Diagnosis Code Status: Full Code - Medication Management Discharge Medications: Medications to Continue on Transfer Digoxin [Lanoxin 0.125 mg] 250 mcg PO MOTUWETHFRSA@179910/08/10 [Last Taken 11/27] Nitroglycerin [Nitrostat 0.4 mg (*)] 0.4 mg SL PRN PRN 10/08/10 [Last Taken 12/27] Omeprazole [Prilosec 20 mg] 20 mg PO DAILY@179910/08/10 [Last Taken 08/19/16] Tamsulosin HCl [Flomax 0.4 MG (*)] 0.4 mg PO DAILY@179910/08/10 [Last Taken 11/27] Aspirin [Aspirin 325 mg (*)] 325 mg PO DAILY@179909/11/13 [Last Taken 08/19/16] Mometasone 220Mcg Inhaler [Asmanex Inh (*)] 2 puffs IH BID 09/11/13 [Last Taken 08/20/16] Multivitamins [Multivitamin (*)] 1 each PO DAILY@179909/11/13 [Last Taken 08/19] Calcium Carb W/Vit D [Calcium Carb W/Vit D 500/200 (*)] 1,000 mg PO DAILY@12/27 [Last Taken 08/19/16] Carvedilol [Coreg (*)] 6.25 mg PO DAILY 08/20/16 [Last Taken 08/20/16] Carvedilol [Coreg (*)] 12.5 mg PO DAILY@08/20/16 [Last Taken 08/19/16] Ezetimibe/Simvastatin [Ezetimibe-Simvastatin 10-40 mg] 1 each PO DAILY@ [Last Taken 08/19/16] Lisinopril [Zestril 5 mg (*)] 5 mg PO MWF@0908/20/16 [Last Taken 08/19/16] Atorvastatin Calcium [Lipitor 20 mg (*)] 20 mg PO DAILY@1800 #30 tab 08/22/16 [ Last Taken Unknown] Clopidogrel Bisulfate [Plavix (*)] 75 mg PO DAILY #30 tab 08/22/16 [Last Taken Unknown] Discharge Medications: Refer to the Discharge Home Medication list for PRN reason. - Orders Services needed: Home Care, Registered Nurse, Physical Therapy Home Care Face to Face: I certify that this patient was under my care and that I had the required [id number] encounter meeting the encounter requirements on the discharge day. My findings support the fact that the patient is homebound as defined in CMS Chapter 7 Medicare Benefits Manual 30.1.1, The condition of the patient is such that there exists a normal inability to leave home and consequently, leaving home would require a considerable and taxing effort. Diet Recommendation: cardiac -low fat low salt - Follow Up Care Current Providers and Referrals: Guillermo Celis MD [Primary Care Provider] - As per Instructions Chandrakant Avila MD [Medical Doctor] - (You have a follow-up of office appointment with Dr. Mcqueen on MondayAugust 30 at 2:15 pm at the [facility])
== END 2016-08-22 14:41 | disposition home or self-care (01) | DRG 249 ==
LOC: EDUNIT# → F2W 12:45 → OBSVTOIN 08-21 17:18
PROVIDERS: ADMIT Internal Medicine; ATTEND Internal Medicine
PROC: 4A023N7 Measurement of Cardiac Sampling and Pressure, Left Heart, Percutaneous Approach (ICD-10-PCS; principal; 2016-08-21)
PROC: 02703DZ Dilation of Coronary Artery, One Artery with Intraluminal Device, Percutaneous Approach (ICD-10-PCS; principal; 2016-08-21)
PROC: B2111ZZ Fluoroscopy of Multiple Coronary Arteries using Low Osmolar Contrast (ICD-10-PCS; principal; 2016-08-21)
DX: I21.4 Non-ST elevation (NSTEMI) myocardial infarction (principal); I25.10 Atherosclerotic heart disease of native coronary artery without angina pectoris; I48.91 Unspecified atrial fibrillation; I10 Essential (primary) hypertension; E78.5 Hyperlipidemia, unspecified; N40.0 Benign prostatic hyperplasia without lower urinary tract symptoms; L97.509 Non-pressure chronic ulcer of other part of unspecified foot with unspecified severity; Z95.1 Presence of aortocoronary bypass graft; K21.9 Gastro-esophageal reflux disease without esophagitis; R73.9 Hyperglycemia, unspecified; I44.7 Left bundle-branch block, unspecified
CPT/HCPCS: 97116-GP; 97161-GP; 97165-GO; 97535-GO; C1760; C1769; C1876; C1884; C1887; G0378; G8987-GO-CJ; G8988-GO-CI; J0583; J1644; J2250; J2405; J3010; Q9967

== ENCOUNTER → 2016-10-21 | Day surgery (SDC) | payer OTHER ==
[~2016-10-21] MED LIST: BUPIVACAINE 0.5% 30 ML SDV ONE; IOPAMIDOL (ISOVUE-M 300) 15 ML VIAL ONE; LIDOCAINE 1% 300 MG/30 ML SDV ONE; TRIAMCINOLONE ACETONIDE 200 MG/5 ML MDV IM ONE
== END | disposition home or self-care (01) ==
LOC: FIMAGING 13:58
PROVIDERS: ATTEND Radiology Diagnostic Radiology
DX: M54.16 Radiculopathy, lumbar region (principal)
CPT/HCPCS: J3301; Q9967

== ENCOUNTER → 2017-06-10 | Outpatient (CLI) | payer OTHER | LOC: FIMAGING 10:54 | PROVIDERS: ATTEND Internal Medicine | DX: M75.122 Complete rotator cuff tear or rupture of left shoulder, not specified as traumatic (principal); M19.012 Primary osteoarthritis, left shoulder ==

== ENCOUNTER → 2017-06-30 | Outpatient (CLI) | payer OTHER ==
[~2017-06-30] MED LIST changes: -BUPIVACAINE 0.5% 30 ML SDV ONE; +IOPAMIDOL (ISOVUE-300) 100 ML BTL ONE; -IOPAMIDOL (ISOVUE-M 300) 15 ML VIAL ONE; -LIDOCAINE 1% 300 MG/30 ML SDV ONE; -TRIAMCINOLONE ACETONIDE 200 MG/5 ML MDV IM ONE
== END ==
LOC: FIMAGING 12:41
PROVIDERS: ATTEND Internal Medicine
DX: M67.912 Unspecified disorder of synovium and tendon, left shoulder (principal); R63.4 Abnormal weight loss; R91.1 Solitary pulmonary nodule; J40 Bronchitis, not specified as acute or chronic; J21.9 Acute bronchiolitis, unspecified; I25.10 Atherosclerotic heart disease of native coronary artery without angina pectoris; J90 Pleural effusion, not elsewhere classified; K57.30 Diverticulosis of large intestine without perforation or abscess without bleeding; I70.0 Atherosclerosis of aorta; M48.56XA Collapsed vertebra, not elsewhere classified, lumbar region, initial encounter for fracture; Z95.1 Presence of aortocoronary bypass graft
CPT/HCPCS: 71260; 74177; Q9967

== ENCOUNTER 2017-07-18 13:33 | Observation (INO) | payer OTHER ==
--- NOTE | 2017-07-18 13:50 | EDPHY ---
H & P Stated Complaint: mechanical fall--L chest onto rocks, hit head-on coumadin, pleuritic cp Time Seen by Provider: 07/18/17 13:50 HPI/ROS: HPI CHIEF COMPLAINT: Mechanical trip and fall, left lateral rib pain. Head strike. HISTORY OF PRESENT ILLNESS: This is 86-year-old male, history of aortic valve replacement on Plavix, he presents emergency room after he had a mechanical trip and fall. Patient reports to me suffers from significant left sided sciatica his left leg. He was walking outside carrying a garden hose. The left leg went out and he fell onto his left side. Complains of left lateral rib pain. Additionally complains of a mild headache. He had head strike. No LOC. He presents emergency room GCS 15, alert or x4. Private vehicle. Past Medical History: Aortic valve on Plavix significant ,sciatica Past Surgical History: Aortic valve, CABG, hypertension, AFib Social History: Denies drugs alcohol tobacco. Family History: Noncontributory ROS REVIEW OF SYSTEMS: A comprehensive 10 point review of systems is otherwise negative aside from elements mentioned in the history of present illness. Exam Constitutional appears well nontoxic no acute distress, triage nursing summary reviewed, vital signs reviewed, awake/alert. Eyes normal conjunctivae and sclera, EOMI, PERRLA. HENT head/neck abrasion over the left forehead, no significant midline cervical spine pain, no step-offs, moist mucus membranes, no epistaxis, neck supple/ no meningismus, no raccoon eyes. Respiratory clear to auscultation bilaterally, normal breath sounds, no respiratory distress, no wheezing. Cardiovascular chest wall good breath sounds bilaterally. Left lateral chest under the axilla has mild tenderness palpation, rate normal, regular rhythm, no murmur, no edema, distal pulses normal. Gastrointestinal soft, non-tender, no rebound, no guarding, normal bowel sounds, no distension, no pulsatile mass. Genitourinary no CVA tenderness. Musculoskeletal no midline vertebral tenderness, full range of motion, no calf swelling, no tenderness of extremities, no meningismus, good pulses, neurovascularly intact. Skin pink, warm, & dry, no rash, skin atraumatic. Neurologic awake, alert and oriented x 3, AAOx3, moves all 4 extremities equally, motor intact, sensory intact, CN II-XII intact, normal cerebellar, normal vision, normal speech. Psychiatric normal mood/affect. Heme/Lymph/Immune no lymphadenopathy. Differential Diagnosis: Includes but is not limited to in a particular order rib fractures, pneumothorax, hemothorax, tension pneumothorax, closed head injury, intracranial bleed, skull fracture Medical Decision Making: Plan for this patient basic blood work, CT scan head without contrast for trauma, chest x-ray two view to rule out trauma. Re-evaluation: CT scan head without contrast fall on Plavix. This is negative for acute bleed. Called to me by Dr. Randy Shaw Patient's chest x-ray two view reviewed by myself. I am unable to visualize pneumothorax or rib fractures. Given his age in left lateral rib pain will proceed with CT chest with IV contrast for trauma. 1607: CT scan of the chest with IV contrast called to me by Dr. Bairon Shaw. This shows multiple left-sided rib fractures. No evidence of pneumothorax. Given this patient's age, I will consult Trauma surgery for possible observation overnight. 1615: Spoke with the trauma surgeon Dr. Macias, agrees to admit this patient for multiple rib fractures. Will additionally consult the hospitalist service for co management. Updated patient. CT scan of the head does not show acute traumatic injury CT scan of the chest shows multiple left-sided rib fractures. For through 5th rib fracture. Plan for admission to the trauma surgeon for for multiple left-sided rib fractures. With hospital consult. 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, a-fib, cardiac stent 08/28, CABG, HTN - Social History Smoking Status: Never smoked Constitutional: Initial Vital Signs Temperature (C) 37.0 C 07/18/17 13:38 Heart Rate 108 H 07/18/17 13:38 Respiratory Rate 18 07/18/17 13:38 Blood Pressure 124/76 H 07/18/17 13:38 O2 Sat (%) 95 07/18/17 13:38 O2 Delivery Mode Room Air Allergies/Adverse Reactions: codeine Allergy (Intermediate, Verified 10/20/16 16:03) Home Medications: Medication Instructions Recorded Aspirin [Aspirin 325 mg (*)] 325 mg PO DAILY@07/18/17 Atorvastatin Calcium [Lipitor 40 40 mg PO DAILY@07/18/17 mg (*)] Calcium/D3/Mag Ox/[employer]/Hiro/Zn 1 each PO DAILY 07/18/17 [Caltrate+D3 Plus Mineral Minis] Carvedilol 6.25 mg PO DAILY 07/18/17 Carvedilol 12.5 mg PO DAILY@07/18/17 Clopidogrel Bisulfate [Clopidogrel] 75 mg PO DAILY 07/18/17 Digoxin [Lanoxin 250 mcg (RX)] 250 mcg PO DAILY@07/18/17 Fluticasone Hfa 220 Mcg [Flovent 1 puffs IH BID 07/18/17 220 MCG Hfa MDI (*)] Lisinopril [Zestril 5 mg (*)] 5 mg PO MOWEFR 07/18/17 Omeprazole 20 mg PO DAILY@07/18/17 Sennosides/Docusate Sodium [Stool 1 each PO DAILY PRN 07/18/17 Softener Tablet] Tamsulosin HCl [Flomax 0.4 MG (*)] 0.4 mg PO DAILY@07/18/17 levOFLOXACIN [levAQUIN (*)] 750 mg PO ONCE 07/18/17 Acetaminophen [Tylenol 325mg (*)] 325 - 650 mg PO Q4HRS PRN tab 07/19/17 traMADol [Ultram 50 mg (*)] 25 - 50 mg PO Q6HRS PRN #30 tab 07/19/17 Medical Decision Making - Data Points Laboratory Results: Laboratory Results 07/18/17 14:05 07/18/17 14:05 Medications Given: Discontinued Medications Acetaminophen (Tylenol) 325 - 650 mg PO Q4HRS PRN PRN Reason: Pain, Mild Able to Take PO Stop: 01/14/18 16:31 Last Admin: 07/19/17 10:21 Dose: 650 mg Carvedilol (Coreg) 6.25 mg PO DAILY [facility] Stop: 01/15/18 08:59 Last Admin: 07/19/17 10:22 Dose: 6.25 mg Clopidogrel Bisulfate (Plavix) 75 mg PO DAILY [facility] Stop: 01/15/18 08:59 Last Admin: 07/19/17 10:22 Dose: 75 mg Fentanyl (Sublimaze) 50 mcg IVP [facility] Stop: 07/18/17 16:26 Last Admin: 07/18/17 16:37 Dose: 50 mcg Fluticasone Propionate (Flovent Hfa) 1 puffs IH BID [facility] Stop: 01/14/18 20:59 Last Admin: 07/19/17 10:23 Dose: 1 puffs Sodium Chloride (Ns) 1,000 mls @ 0 mls/hr IV ONCE ONE PRN Reason: Wide Open Stop: 07/18/17 16:26 Last Admin: 07/18/17 16:39 Dose: 1,000 mls Ibuprofen (Motrin) 600 mg PO Q8HRS [facility] Stop: 01/14/18 21:59 Last Admin: 07/19/17 05:52 Dose: 600 mg Senna/Docusate Sodium (Senokot-S) 1 tab PO DAILY PRN PRN Reason: Constipation Stop: 01/14/18 19:15 Last Admin: 07/18/17 21:08 Dose: 1 tab Departure - Departure Disposition: [facility] Inpatient Acute Clinical Impression: Fall Qualifiers: Encounter type: initial encounter Qualified Code(s): W19.XXXA - Unspecified fall, initial encounter Rib contusion Qualifiers: Encounter type: initial encounter Laterality: left Qualified Code(s): S20.212A - Contusion of left front wall of thorax, initial encounter Rib fractures Qualifiers: Encounter type: initial encounter Rib fracture type: multiple ribs Fracture type: closed Laterality: left Qualified Code(s): S22.42XA - Multiple fractures of ribs, left side, initial encounter for closed fracture Condition: Fair
[2017-07-18 14:27] LABS: PLATELET COUNT 334 10^3/uL (150-400)
[2017-07-18 14:34] LABS: INR 1.06 (0.83-1.16)
[2017-07-18] MEDS ORDERED: IOPAMIDOL (ISOVUE-300) 100 ML BTL ONE (15:05)
[2017-07-18] MEDS ORDERED: NS 1,000 ML IV ONE (16:25)
[2017-07-18] MEDS ORDERED: fentaNYL 100 MCG/2 ML INJ IVP ONE (16:25)
[2017-07-18] MEDS ORDERED: ONDANSETRON 4 MG/2 ML VIAL IVP PRN (16:32)
[2017-07-18] MEDS ORDERED: ONDANSETRON DISINTEGRATING 4 MG TAB PO PRN (16:32)
[2017-07-18] MEDS ORDERED: traMADol 50 MG TAB PO PRN (16:36)
[2017-07-18] MEDS: ACETAMINOPHEN 325 MG TAB PO PRN (18:37)
[2017-07-18] MEDS ORDERED: SENNOSIDES/DOCUSATE SODIUM TAB PO PRN (19:16)
--- NOTE | 2017-07-18 19:28 | GHP ---
[f rep st] HISTORY AND PHYSICAL DATE OF ADMISSION: 07/18/2017 CHIEF COMPLAINT: Fall. HISTORY OF PRESENT ILLNESS: The patient is an 86-year-old man who fell while carrying a garden hose upstairs. He normally uses a cane because of sciatica and when he was going up the stairs, he was un able to use the cane and lost his balance. He presented to the emergency room, and a CT scan was obt ained, which did not show any intracranial injury. The chest showed left-sided rib fractures 4-8. H e is on Plavix for a heart stent. PAST MEDICAL HISTORY: Cardiac stent, aortic valve, sciatica, hypertension, atrial fibrillation. PAST SURGICAL HISTORY: Aortic valve, CABG. SOCIAL HISTORY: Does not use tobacco or alcohol use. He lives with his . FAMILY HISTORY: Noncontributory. REVIEW OF SYSTEMS: Ten-point review of systems is significant for pain with deep inspiration and gai t difficulty. PHYSICAL EXAM: VITAL SIGNS: Reviewed. GENERAL: Pleasant, well-nourished, well-groomed man, sittin g up in [facility]. HEENT: Normocephalic. He has a small abrasion over his left forehead. There is no obvious hematoma. Pupils equal and round. He is slightly hard hearing. No otorrhea. No rhinorrhe a. Teeth fit together normally. No midface instability. LUNGS: Clear to auscultation bilaterally. No increased work of breathing. CHEST: No obvious signs of ecchymosis or abrasions. CARDIAC: Re gular rate. ABDOMEN: Bowel sounds present. Soft, nontender. MUSCULOSKELETAL: Arthritic joints. PSYCH: Mood and affect normal. NEURO: Grossly intact. RESULTS REVIEWED: I personally reviewed the results of his chest x-ray, as well as his CT scans. I see the rib fractures. I do not see a hemo or pneumothorax. IMPRESSION AND PLAN: The patient is an 86-year-old man on Plavix with 3 rib fractures. I will admit him to the hospital for observation. I have encouraged him to do cough, deep breathing. I apprecia te the hospitalist assisting with his comorbidities. We will get a chest x-ray in the morning. I am hopeful he will be able to be discharged tomorrow. /[id number]/MODL
--- NOTE | 2017-07-18 19:57 | GCON ---
[f rep st] CONSULTATION MEDICINE CONSULTATION REASON FOR CONSULTATION: This is a medicine consultation at the request of Dr. Melody Macias for evalu ation and management of multiple medical issues including coronary artery disease in the setting of m ultiple rib fractures. HISTORY OF PRESENT ILLNESS: This is an 86-year-old man who has multiple medical issues including cor onary artery disease, atrial fib and flutter, as well as chronic sciatic back pain, who presents stat us post a mechanical fall with multiple rib fractures. The patient notes that he was at home walking , when he felt as if his legs gave out secondary to his chronic sciatic pain. He fell and landed on some rocks on his left flank. Since then, he has noted significant pain especially with coughing but also with deep breathing. His other main concern at this point is that his sciatic pain is so much worse and that his prior doctor who cared for this, Dr. Bonilla, is no longer able to care for him. H yulissa notes that at home, he walks typically with a cane, though he also has a walker at home that he rar massiel uses because he feels as if it is too big for him. He notes that he does not have a history of f requent falling, however. PAST MEDICAL HISTORY: 1. Coronary artery disease with recent NSTEMI and PCI slightly less than 1 year ago. 2. Valvular heart disease. 3. Atrial fibrillation/flutter. 4. Chronic radicular back pain/sciatica. 5. Hypertension. 6. Hyperlipidemia. 7. BPH. PAST SURGICAL HISTORY: Includes: 1. 2-vessel CABG. 2. Stents. 3. Mitral valve repair. 4. Hernia repair. FAMILY HISTORY: Reviewed and noncontributory. SOCIAL HISTORY: Patient is and lives independently with his . He is quite active at [employer]. He is a non smoker, nondrug user, states he almost never drinks. REVIEW OF SYSTEMS: 10-point review of systems obtained, negative except as per HPI. HOME MEDICATIONS: Include: 1. Tamsulosin. 2. Senna. 3. Omeprazole. 4. Lisinopril. 5. Fluticasone. 6. Digoxin. 7. Clopidogrel. 8. Carvedilol. 9. Calcium. 10. Atorvastatin. 11. Aspirin. ALLERGIES: Codeine. PHYSICAL EXAMINATION: VITAL SIGNS: BP 136/66, heart rate 71, respiratory rate 19, O2 sats 96% on ro om air, temperature 36.8. GENERAL APPEARANCE: This is well-developed, well-nourished elderly man. He is awake and alert. He is in no acute distress. HEENT: Eyes anicteric. Oropharynx clear. CARD IOVASCULAR: RRR, no MRG. PULMONARY: CTA bilaterally with somewhat diminished breath sounds at the bases. CHEST: Tender to palpation over the left flank. ABDOMEN: Soft, nontender. Positive bowel sounds. EXTREMITIES: No clubbing, cyanosis, or edema. SKIN: Warm, dry, well perfused. NEURO/PSYC H: Oriented and appropriate, pleasant. CLINICAL DATA: Labs reviewed and notable for white blood cell count of 14, hematocrit of 40. Coags are unremarkable. Chemistry notable only for a BUN of 25, creatinine 1.2. Chest x-ray personally reviewed and interpreted, showing left basilar opacities that have been presen t previously as well. Chest CT shows acute non or minimally displaced lateral left 4th through 6th rib fractures as well as a shifting multifocal consolidation, atelectasis versus less likely pneumonia. Head CT showing no a cute intracranial findings. ASSESSMENT/PLAN: This is an 86-year-old man status post mechanical fall, presenting with multiple ri b fractures. 1. Multiple rib fractures. Patient has been admitted to the Trauma service. He has been started on the rib protocol. Discussed with him the importance of deep breathing and good effective pain manag ement. Patient does express understanding. Currently appears comfortable. Physical Therapy/Occupat ional Therapy will be involved. 2. Mechanical fall. This does sound as if it was related to his sciatic pain as per number next. H e does walk with a cane at home, though he has previously been recommended to use a walker. Again, P hysical Therapy/Occupational Therapy will be involved, but suspect transitioning to a walker might be in his best interest. 3. Radicular back pain. The patient has had issues with sciatica in the past and it sounds that on this occasion, this led to his fall. He has previously benefitted from injections through [facility], but has been unable to do this recently, given his usual physician has retired. I di scussed with him that should he be in-house long enough, this may be able to be performed as an inpat ient. 4. Coronary artery disease with recent non-ST segment elevation myocardial infarction. He is mainta ined on aspirin, statin, beta frederick and Plavix. We will continue these medications for now, though we will need to consider holding for [facility] injection if this is something that co uld possibly be arranged as an inpatient. 5. Paroxysmal atrial fibrillation. The patient appears to be sinus rhythm on evaluation in the [facility] department. He is on beta frederick as well as digoxin chronically. We will obtain an electroca rdiogram and continue his home medications. 6. Lung consolidation noted on imaging. This appears to be a longstanding issue. This is being fol lowed by his primary care physician. In comparison with old x-rays, there does not appear to be sign ificant change. He is relatively asymptomatic. We will not work up further in-house unless this berna nges. 7. Disposition: Observation per General Surgery. 8. Patient is new to my care. Old records reviewed, summarized as per HPI and past medical history. Ca re plan reviewed with ER physician including plans for rib protocol. Thank you for this consultation. Medicine will continue to follow while patient is in-house. /[id number]/MODL
[2017-07-18] MEDS: IBUPROFEN 600 MG TAB PO SCH (21:08)
--- NOTE | 2017-07-18 21:16 | CPEKG ---
Heart Rate: 62 RR Interval: 968 P-R Interval: 233 QRSD Interval: 134 QT Interval: 524 QTC Interval: 533 P Leonidas: 0 QRS Leonidas: -55 T Wave Leonidas: 148 EKG Severity - ABNORMAL ECG - EKG Impression: SINUS RHYTHM EKG Impression: ATRIAL PREMATURE COMPLEX EKG Impression: FIRST DEGREE AV BLOCK EKG Impression: LEFT BUNDLE BRANCH BLOCK Electronically Signed By: Chandrakant Avila 19-Jul-2017 08:41:40
[2017-07-18] MEDS: FLUTICASONE HFA 220 MCG MDI IH SCH (21:57)
[2017-07-19 00:54] VITALS: BP 126/52
[2017-07-19] MEDS: IBUPROFEN 600 MG TAB PO SCH (05:52)
[2017-07-19 07:44] LABS: PLATELET COUNT 320 10^3/uL (150-400)
[2017-07-19] MEDS ORDERED: CLOPIDOGREL BISULFATE 75 MG TAB PO SCH (09:00)
[2017-07-19] MEDS ORDERED: CARVEDILOL 6.25 MG TAB PO SCH ×2 (09:00→17:00)
[2017-07-19] MEDS: ACETAMINOPHEN 325 MG TAB PO PRN (10:21)
[2017-07-19] MEDS: FLUTICASONE HFA 220 MCG MDI IH SCH (10:23)
--- NOTE | 2017-07-19 10:43 | ASMTLACE ---
LACE Length of stay for Answers: Less than 1 day current admission Acuity / Level of Answers: No Care: Did the patient have an inpatient admission? Comorbidities - select Answers: Coronary Artery Disease all that apply Other Notes: Aortic valve; CABG # of Emergency department Answers: 1-2 visits in the last 6 months Score: 4 Date Signed: 07/19/2017 10:42 AM Electronically Signed By:Meredith Coelho RN
--- NOTE | 2017-07-19 10:45 | PDIAF ---
- Diagnosis Diagnosis: fall, sciatica, rib fractures Code Status: Full Code - Medication Management Discharge Medications: Medications to Continue on Transfer Aspirin [Aspirin 325 mg (*)] 325 mg PO DAILY@07/18/17 [Last Taken 07/17/17] Atorvastatin Calcium [Lipitor 40 mg (*)] 40 mg PO DAILY@07/18/17 [Last Taken 07/17/17] Calcium/D3/Mag Ox/Tub Puller/Hiro/Zn [Caltrate+D3 Plus Mineral Minis] 1 each PO DAILY 07/18/17 [Last Taken 07/18/17] Carvedilol 6.25 mg PO DAILY 07/18/17 [Last Taken 07/18/17] Carvedilol 12.5 mg PO DAILY@07/18/17 [Last Taken 07/17/17] Clopidogrel Bisulfate [Clopidogrel] 75 mg PO DAILY 07/18/17 [Last Taken 07/18/17 ] Digoxin [Lanoxin 250 mcg (RX)] 250 mcg PO DAILY@07/18/17 [Last Taken 07/17/17 ] Fluticasone Hfa 220 Mcg [Flovent 220 MCG Hfa MDI (*)] 1 puffs IH BID 07/18/17 [ Last Taken Unknown] Lisinopril [Zestril 5 mg (*)] 5 mg PO MOWEFR 07/18/17 [Last Taken 07/17/17] Omeprazole 20 mg PO DAILY@07/18/17 [Last Taken 07/17/17] Sennosides/Docusate Sodium [Stool Softener Tablet] 1 each PO DAILY PRN 07/18/17 [Last Taken Unknown] Tamsulosin HCl [Flomax 0.4 MG (*)] 0.4 mg PO DAILY@07/18/17 [Last Taken 07/17] levOFLOXACIN [levAQUIN (*)] 750 mg PO ONCE 07/18/17 [Last Taken 07/17/17] Acetaminophen [Tylenol 325mg (*)] 325 - 650 mg PO Q4HRS PRN tab 07/19/17 [Last Taken Unknown] traMADol [Ultram 50 mg (*)] 25 - 50 mg PO Q6HRS PRN #30 tab 07/19/17 [Last Taken Unknown] Discharge Medications: Refer to the Discharge Home Medication list for PRN reason. - Orders Services needed: Home Care, Physical Therapy, Occupational Therapy Home Care Face to Face: I certify that this patient was under my care and that I had the required [id number] encounter meeting the encounter requirements on the discharge day. My findings support the fact that the patient is homebound as defined in Home Care Face to Face Continued: CMS Chapter 7 Medicare Benefits Manual 30.1.1 , The condition of the patient is such that there exists a normal inability to leave home and consequently, leaving home would require a considerable and taxing effort. Diet Recommendation: no restrictions on diet Additional Instructions: Use a walker for safety. Follow up with Dr. Celis to discuss repeat epidural injection. - Follow Up Care Current Providers and Referrals: Guillermo Celis MD [Primary Care Provider] - As per Instructions
--- NOTE | 2017-07-19 10:49 | TRAUMAPN ---
Trauma Progress Note Assessment/Plan: tertiary exam: 86 male with fall in his garden with left rib fxs and scalp abrasion alert, comfortable neuro intact chest symmetric bs cor rr abd soft and nontender extre full rom and pulses cxr stable plan home today / fu next week in office Objective: Vital Signs Temp Pulse Resp BP Pulse Ox 35.9 C L 85 17 126/52 H 95 07/19/17 00:00 07/19/17 10:22 07/19/17 00:00 07/19/17 00:00 07/19/17 00:00 Laboratory Results 07/19/17 06:40 07/18/17 07/19/17 07/20/17 05:59 05:59 05:59 Intake Total 1300 Balance 1300 PT 14.0 SEC (12.0-15.0) 07/18/17 14:05 INR 1.06 (0.83-1.16) 07/18/17 14:05
--- NOTE | 2017-07-19 10:55 | TRAUMAPN ---
Trauma Progress Note Assessment/Plan: 86 y/o M with a history of heart stents and on anticoagulation s/p mechanical fall yesterday. Injuries include left sided rib fractures 4-8. No pneumothorax. Head CT negative for intracranial bleeding S: Sitting up in bed during visit. C/o of soreness in his right ribs. No SOB. Lives at home with his and feels he could be discharged today or tomorrow. Denies headaches. O: Alert Afebrile RRR Chest: appropriately tender to palpation on left side. Breath sounds CTA bilaterally Repeat chest xray this am stable. Abdomen: soft, nontender, +BS Neuro: CN 2-12 grossly intact. Skin: superficial abrasion to left scalp. No surrounding signs of infection. Plan: Chest CT showed cortical lucencies in humeri, possibly artifact. Follow up 2-way xray to reassess. Likely home today or tomorrow. Dispo home. Objective: Vital Signs Temp Pulse Resp BP Pulse Ox 35.9 C L 85 17 126/52 H 95 07/19/17 00:00 07/19/17 10:22 07/19/17 00:00 07/19/17 00:00 07/19/17 00:00 Laboratory Results 07/19/17 06:40 07/18/17 07/19/17 07/20/17 05:59 05:59 05:59 Intake Total 1300 Balance 1300 PT 14.0 SEC (12.0-15.0) 07/18/17 14:05 INR 1.06 (0.83-1.16) 07/18/17 14:05
[2017-07-19] MEDS ORDERED: TAMSULOSIN HCL 0.4 MG CAP PO SCH (17:00)
[2017-07-19] MEDS ORDERED: ASPIRIN 325 MG TAB PO SCH (17:00)
[2017-07-19] MEDS ORDERED: ATORVASTATIN CALCIUM 40 MG TAB PO SCH (17:00)
[2017-07-19] MEDS ORDERED: DIGOXIN 250 MCG TAB PO SCH (17:00)
[2017-07-19] MEDS ORDERED: PANTOPRAZOLE SODIUM 40 MG TAB PO SCH (17:00)
--- NOTE | 2017-07-20 13:31 | ASMTCMCOM ---
CM Note CM Note Notes: [facility] notified us late in the day, they cannot accept patient due to not taking his insurance. Patient had already been d/c'ed. Contacted patient to inform him and ask him if he wanted me to locate another home health agency. Patient states he is in too much pain and plans to go for a series of shots to alleviate this and doesn't feel he is interested in home health at this time. No further needs. Date Signed: 07/20/2017 01:30 PM Electronically Signed By:Cris Pittman LCSW
== END 2017-07-19 11:30 | disposition home or self-care (01) ==
LOC: F2N 18:25
PROVIDERS: ADMIT Surgery; ATTEND Surgery
DX: S22.42XA Multiple fractures of ribs, left side, initial encounter for closed fracture (principal); Z79.01 Long term (current) use of anticoagulants; W19.XXXA Unspecified fall, initial encounter
CPT/HCPCS: 70450; 71045; 71046; 71260; 73060; 92523; 93005; 97116; 97161; 97165; 99285; G0378; G8978; G8979; G8980; G8987; G8988; G8989; J3010; Q9967

== ENCOUNTER 2017-07-28 13:11 | Day surgery (SDC) | payer OTHER ==
[2017-07-28] MEDS ORDERED: TRIAMCINOLONE ACETONIDE 200 MG/5 ML MDV IM ONE (13:34)
[2017-07-28] MEDS ORDERED: LIDOCAINE 1% 300 MG/30 ML SDV ONE (13:34)
[2017-07-28] MEDS ORDERED: IOPAMIDOL (ISOVUE-M 300) 15 ML VIAL ONE (13:34)
== END 2017-07-28 15:20 | disposition home or self-care (01) ==
LOC: FIMAGING 13:11
PROVIDERS: ATTEND Internal Medicine
PROC: 3E0S33Z Introduction of Anti-inflammatory into Epidural Space, Percutaneous Approach (ICD-10-PCS; principal; 2017-07-28)
DX: M54.30 Sciatica, unspecified side (principal)
CPT/HCPCS: J3301; Q9967

== ENCOUNTER → 2017-08-03 | Outpatient (CLI) | payer OTHER | LOC: CIMAGING 11:19 | PROVIDERS: ATTEND Internal Medicine | DX: J90 Pleural effusion, not elsewhere classified (principal); J92.9 Pleural plaque without asbestos | CPT/HCPCS: 71046-PO ==

== ENCOUNTER → 2017-08-31 | Outpatient (CLI) | payer OTHER | LOC: FIMAGING 13:10 | PROVIDERS: ATTEND Podiatrist | DX: I74.3 Embolism and thrombosis of arteries of the lower extremities (principal); I72.4 Aneurysm of artery of lower extremity ==

== ENCOUNTER → 2017-09-04 | Outpatient (CLI) | payer OTHER | LOC: FIMAGING 13:39 | PROVIDERS: ATTEND Internal Medicine Hematology & Oncology | DX: J84.10 Pulmonary fibrosis, unspecified (principal); J98.19 Other pulmonary collapse; J98.09 Other diseases of bronchus, not elsewhere classified | CPT/HCPCS: 71260; Q9967; 82565-PO ==

== ENCOUNTER 2017-10-05 16:04 | Inpatient (IN) | payer OTHER ==
--- NOTE | 2017-10-05 16:16 | EDPHY ---
HPI/HX/ROS/PE/MDM Narrative: CHIEF COMPLAINT: Fall, weight loss, chest congestion HISTORY OF PRESENT ILLNESS: The patient is an anticoagulated (Plavix) 87 y/o male with a history of aortic valve surgery, coronary artery bypass, and atrial fibrillation arriving via EMS after he fell. Over the past 3 months, he has been slowly declining with 40 pounds of weight loss, increasing chest congestion , and increasing weakness. He had a left lower lobe pneumonia and since that time has had CT scans demonstrating atelectasis, bronchial debris, and left lower lobe collapse. Today, he was sitting on the toilet, when his leg fell asleep, making him unable to stand up. His tried to help him but he fell off the toilet. He denies striking his head or losing consciousness. EMS was called. He reports he is coughing up white, green, and brown mucus. Patient's primary complaint to myself visit he feels weak, he has lost weight, he somewhat depressed, and he has a very wet cough with mucus congestion that he is unable to clear. No fever, chills, chest pain, palpitations, vomiting, diarrhea, urinary complaints, headache, lightheadedness. REVIEW OF SYSTEMS: Aside from elements discussed in the HPI, a comprehensive 10-point review of systems was reviewed and is negative. PAST MEDICAL HISTORY: Aortic valve surgery, coronary artery bypass, hypertension, atrial fibrillation, sciatica with inoperable cyst SOCIAL HISTORY: and son-in-law at bedside, lives in [place], [facility] VITAL SIGNS: Reviewed by me. Temperature 38.1 degrees. GENERAL: Resting comfortably, pale, thin, cachectic. Frequent wet cough that is weak. HEENT: Atraumatic. Eyes: No icterus, no injection. Mouth: moist mucous membranes. No erythema or lesions. Neck: supple with no adenopathy. LUNGS: Diminished/absent breath sounds at the left base. Otherwise lung hernández are clear with intermittent bronchial breath sounds. CARDIAC: Heart difficult to auscultate over the patient's frequent coughing and bronchial breath sounds. Systolic murmur noted. ABDOMEN: Soft, scaphoid, nontender, nondistended, bowel sounds normal. BACK: No CVA tenderness. EXTREMITIES: No trauma. No edema. Range of motion is normal throughout. NEURO: Alert and oriented, motor strength 5/5 with testing although patient reports feeling generally quite weak. No focal weakness. No focal sensory loss. Cranial nerves 2-12 are intact. SKIN: Warm and dry, no rash. PSYCHIATRIC: Normal mentation, no agitation. ED Course: X-ray: Chest x-ray was obtained. I viewed the images myself on the PACS system. My interpretation of the images is: increasing consolidation and volume loss of left lower lobe. The radiologist interpretation is consolidation and volume loss of left lower lobe. I discussed the x-ray findings with the patient. The patient presents with increasing weakness, weight loss, and chest congestion for the past 3 months. Today he fell trying to get off the toilet. He denies striking his head, loss of consciousness, or any other injuries. Workup for ongoing issues has been largely inconclusive. Plan for evaluation including blood cultures, lactic acid, and troponin, urinalysis, urine culture, respiratory pathogen analysis, EKG, and chest x-ray. Patient's initial lactic acid on feel blood was 4.0. Repeat i-STAT lactic acid was obtained and was 3.0. Evaluation for sepsis was undertaken. Patient denies a fever at home but has a temperature here 38.1. Severe Sepsis/Septic Shock Care Note The patient presents to the ED with pneumonia identified as a possible acute infection. The patient did have evidence of end-organ dysfunction and met criteria for severe sepsis. This condition was identified by myself at 1635. The patients vital signs are 1 0 weight over 62, heart rate 89, respiratory rate 16, O2 sat 95%, temperature 38.1 degrees. The patient has a venous lactic acid performed within 3 hours of the identification of severe sepsis which was found to be 3.0. The patient has blood cultures drawn and received Levaquin IV , per the severe sepsis treatment protocol. within the past 24 hours.] The initial lactate was elevated and rechecked within 6 hours of the identification time of severe sepsis and found to be: 1.8. Patient's evaluation and lab findings were discussed with the patient and the family. Patient will be admitted to the hospital. I am concerned regarding his significant lactic acidosis as well as a significant leukocytosis of 22, 000. Patient will require further evaluation and supportive care including most likely pulmonary consultation, possible bronchoscopy, and physical therapy evaluation. MDM: Differential diagnosis of the patient's weakness was considered including but not limited to electrolyte abnormality, anemia, cardiac ischemia, CVA, spinal cord abnormality, and infectious causes. Differential diagnosis for the patient's cough was considered including but not limited to viral versus bacterial bronchitis, asthma, COPD, pulmonary emboli, upper respiratory infection, lower respiratory infection, and bronchospasm. - Data Points Imaging Results: CXR: Impression: 1. Persistent left basilar consolidation, most likely related to persistent complete left lower lobe atelectasis or less likely pneumonia, with slight increase in left pleural thickening/effusion. 2. Additional findings as above. Dictated By: Vince Shaw MD Imaging: I viewed and interpreted images myself Laboratory Results: Laboratory Results 10/06/17 04:50 10/06/17 04:50 Medications Given: Albuterol/Ipratropium (Duoneb) 3 ml IH Q6HRS [facility] Stop: 04/04/18 00:00 Last Admin: 10/08/17 06:05 Dose: 3 ml Aspirin (Aspirin) 325 mg PO DAILY [facility] Stop: 04/04/18 08:59 Last Admin: 10/08/17 09:10 Dose: 325 mg Atorvastatin Calcium (Lipitor) 40 mg PO DAILY@17 [facility] Stop: 04/04/18 16:59 Last Admin: 10/07/17 17:03 Dose: 40 mg Carvedilol (Coreg) 6.25 mg PO BIDMEAL [facility] Stop: 04/04/18 07:59 Last Admin: 10/08/17 09:10 Dose: 6.25 mg Digoxin (Lanoxin) 250 mcg PO DAILY@17 [facility] Stop: 04/04/18 16:59 Last Admin: 10/07/17 17:03 Dose: 250 mcg Fluticasone Propionate (Flovent Hfa) 2 puffs IH BID [facility] Stop: 04/04/18 08:59 Last Admin: 10/08/17 09:36 Dose: 2 puffs Guaifenesin (Mucinex) 1,200 mg PO BID [facility] Stop: 04/03/18 20:59 Last Admin: 10/08/17 09:10 Dose: 1,200 mg Ampicillin Sodium/Sulbactam (Sodium 3 gm/ Sodium Chloride) 100 mls @ 200 mls/ hr IV Q6HRS [facility] PRN Reason: Protocol Stop: 11/06/17 11:59 Last Admin: 10/08/17 06:01 Dose: 100 mls Miscellaneous Information (Patch Removal) 1 ea TD DAILY21 [facility] Stop: 04/03/18 20:59 Last Admin: 10/07/17 21:02 Dose: 1 ea Miscellaneous Medication (Icy Hot Lidocaine/Menthol 4%/1% Patch) 1 patch TD DAILY [facility] Stop: 04/03/18 19:14 Last Admin: 10/08/17 08:40 Dose: Not Given Miscellaneous Medication (Calcium/D3/Mag Ox/Stapling Machine Operator/Hiro/Zn [Caltrate+D3 Plus Mineral Minis]) 1 each PO DAILY [facility] Stop: 04/04/18 08:59 Last Admin: 10/08/17 08:40 Dose: Not Given Pantoprazole Sodium (Protonix) 40 mg PO DAILY [facility] Stop: 04/04/18 08:59 Last Admin: 10/08/17 09:10 Dose: 40 mg Senna/Docusate Sodium (Senokot-S) 1 tab PO PRN PRN PRN Reason: Constipation Stop: 04/03/18 23:14 Last Admin: 10/07/17 21:03 Dose: 1 tab Tamsulosin HCl (Flomax) 0.4 mg PO DAILY@17 [facility] Stop: 04/04/18 16:59 Last Admin: 10/07/17 17:03 Dose: 0.4 mg Discontinued Medications Sodium Chloride (Ns) 1,800 mls @ 3,600 mls/hr 30 ml/kg infuse over 30 min ( 1800 ml) IV EDNOW ONE PRN Reason: Protocol Stop: 10/05/17 17:04 Last Admin: 10/05/17 17:19 Dose: 1,800 mls Levofloxacin/Dextrose (Levaquin 750 Mg (Premix)) 150 mls @ 100 mls/hr IV EDNOW ONE PRN Reason: Protocol Stop: 10/05/17 18:44 Last Admin: 10/05/17 17:32 Dose: 150 mls Levofloxacin/Dextrose (Levaquin 750 Mg (Premix)) 150 mls @ 100 mls/hr IV DAILY [facility] PRN Reason: Protocol Stop: 11/05/17 08:59 Last Admin: 10/07/17 08:56 Dose: 150 mls Prednisone (Prednisone) 40 mg PO DAILY [facility] Stop: 04/03/18 19:44 Last Admin: 10/07/17 08:57 Dose: 40 mg Point of Care Test Results: Chemistry 10/05/17 10/05/17 16:19 16:17 POC Sodium 137 mEq/L mEq/L (135-145) POC Potassium 4.2 mEq/L mEq/L (3.3-5.0) POC Chloride 97 mEq/L mEq/L (97-110) POC BUN 16 mg/dL mg/dL (7-23) POC Creatinine 0.9 mg/dL mg/dL (0.7-1.3) POC Glucose 165 mg/dL H mg/dL (70-100) POC Troponin I 0.01 ng/mL ng/mL (0.00-0.08) Blood Gas/Lactic Acid-Arterial 10/05/17 10/05/17 10/05/17 16:19 16:29 18:01 POC Blood Source VENOUS VENOUS VENOUS Blood Gas/Lactic Acid-Venous 10/05/17 10/05/17 10/05/17 18:01 16:29 16:19 POC VBG pH 7.45 H 7.50 H 7.40 (7.31-7.42) (7.31-7.42) (7.31-7.42) POC VBG pCO2 39 mmHg L mmHg 33 mmHg L mmHg 44 mmHg mmHg (40-44) (40-44) (40-44) POC VBG pO2 TNP 39 mmHg mmHg TNP (35-40) POC VBG HCO3 26 mEq/L mEq/L 25 mEq/L mEq/L 28 mEq/L H mEq/L (22-26) (22-26) (22-26) POC VBG Total CO2 28 mEq/L H mEq/L 26 mEq/L mEq/L 29 mEq/L H mEq/L (21-27) (21-27) (21-27) POC VBG Base Excess 3.0 mEq/L H mEq/L 2.0 mEq/L mEq/L 3.0 mEq/L H mEq/L (-2.5-2.5) (-2.5-2.5) (-2.5-2.5) POC Mix VBG O2 Sat TNP 76 % H % TNP (65-75) POC Lactic Acid Jagdish 1.7 mmol/L D mmol/L 3.0 mmol/L H D mmol/L 4.3 mmol/L H mmol/L (0.7-2.1) (0.7-2.1) (0.7-2.1) ISTAT H&H 10/05/17 16:19 POC Hgb 13.3 gm/dL L gm/dL (13.7-17.5) POC Hct 39 % L % (40-51) Microbiology Results: MICROBIOLOGY 10/06/17 05:54 Sputum, Induced/Suctioned - Final 10/06/17 05:54 Sputum, Induced/Suctioned Sputum Culture - Preliminary Gail Albicans Presumptive 10/05/17 17:00 Urine,Clean Catch Urine Culture - Final Four [place] Types 10/05/17 14:40 Blood Blood Culture - Preliminary 10/05/17 17:26 Blood Blood Culture - Preliminary General Time Seen by Provider: 10/05/17 16:04 Initial Vital Signs: Initial Vital Signs Temperature (C) 38.1 C 10/05/17 16:30 Heart Rate 89 10/05/17 16:30 Respiratory Rate 16 10/05/17 16:30 Blood Pressure 108/62 10/05/17 16:30 O2 Sat (%) 95 10/05/17 16:30 O2 Delivery Mode Room Air Allergies/Adverse Reactions: codeine Allergy (Intermediate, Verified 10/20/16 16:03) Home Medications: Medication Instructions Recorded Aspirin [Aspirin 325 mg (*)] 325 mg PO DAILY 10/05/17 Atorvastatin Calcium [Lipitor 40 40 mg PO DAILY@10/05/17 mg (*)] Calcium/D3/Mag Ox/Stapling Machine Operator/Hiro/Zn 1 each PO DAILY 10/05/17 [Caltrate+D3 Plus Mineral Minis] Carvedilol [Coreg (*)] 6.25 mg PO BIDMEAL 10/05/17 Digoxin 250 mcg PO DAILY@10/05/17 Fluticasone Hfa 220 Mcg [Flovent 2 puffs IH BID 10/05/17 220 MCG Hfa MDI (*)] Ibuprofen [Motrin (*)] 200 mg PO HS PRN 10/05/17 Multivitamins [Multivitamin (*)] 1 each PO DAILY 10/05/17 Omeprazole 20 mg PO DAILY@17 10/05/17 Sennosides/Docusate Sodium 1 each PO PRN PRN 10/05/17 [Senna-Docusate Sodium Tablet] Tamsulosin HCl [Flomax 0.4 MG (*)] 0.4 mg PO DAILY@17 10/05/17 Departure - Departure Disposition: [facility] Inpatient Acute Clinical Impression: Weight loss, Weakness, Chest congestion, Collapsed lung Sepsis Qualifiers: Sepsis type: sepsis due to unspecified organism Qualified Code(s): A41.9 - Sepsis, unspecified organism Condition: Fair Report Scribed for: Britney Ramirez Report Scribed by: Vianney Hernandez Date of Report: 10/05/17 Time of Report: 17:30 Physician Review and Approval Statement: Portions of this note were transcribed by a director of medical services. I personally performed a history, physical exam, medical decision making, and confirmed accuracy of information the transcribed note.
--- NOTE | 2017-10-05 16:21 | CPEKG ---
Heart Rate: 88 RR Interval: 682 P-R Interval: 232 QRSD Interval: 132 QT Interval: 332 QTC Interval: 402 P Milmine: -16 QRS Milmine: -53 T Wave Milmine: 125 EKG Severity - ABNORMAL ECG - EKG Impression: SINUS RHYTHM EKG Impression: FIRST DEGREE AV BLOCK EKG Impression: LEFT BUNDLE BRANCH BLOCK Electronically Signed By: Britney Ramirez 05-Oct-2017 22:35:14
[2017-10-05] MEDS ORDERED: NS 1,800 ML IV ONE (16:35)
[2017-10-05 16:46] LABS: PLATELET COUNT 574 10^3/uL (150-400)
[2017-10-05 17:10] LABS: INR 1.18 (0.83-1.16); PROTIME(PATIENT) 15.2 SEC (12.0-15.0)
[2017-10-05] MEDS ORDERED: ACETAMINOPHEN 325 MG TAB PO PRN (18:49)
[2017-10-05] MEDS ORDERED: ONDANSETRON 4 MG/2 ML VIAL IVP PRN (18:49)
[2017-10-05] MEDS ORDERED: ONDANSETRON DISINTEGRATING 4 MG TAB PO PRN (18:49)
[2017-10-05] MEDS ORDERED: NS 1,000 ML IV SCH (19:00)
--- NOTE | 2017-10-05 20:16 | GHP ---
[f rep st] HISTORY AND PHYSICAL DATE OF ADMISSION: 10/05/2017 CHIEF COMPLAINT: Weakness. HISTORY OF PRESENT ILLNESS: This is an 87-year-old man who is admitted with weakness. He was on the toilet today and was unable to get up. He called his to help him, after he stood he slowly slumped down and sat on the floor. Because of that he was brought to the emergency department. His recent medical course has been somewhat complicated. He has had somewhat of a chronic cough. He did have a beryllium exposure in the past. He saw Dr. Rocha in June for some abnormalities which were seen on chest x-ray and subsequent CT scan. These included some pulmonary nodules as well as indeterminate lesion in the base of his left chest. When he saw Dr. Rocha, they discussed the possibility of a bronchoscopy however had decided against it given his age as well as the fact that he is on Plavix. Cultures at that time were ordered as well as sputum cytology, however they were never obtained. Since then, he felt broke 3 left ribs, was in the hospital overnight, treated conservatively for that. He did not require a chest tube. He has had ongoing imaging which has shown a left lobe collapse since then. He comes in today as above with worsening weakness. He also notes a 40 pound weight loss over the last 6 to 8 months. PAST MEDICAL/SURGICAL HISTORY: 1. Coronary artery disease, status post stent in August of 2016, as well as a CABG. 2. Aortic valve replacement. 3. Sciatica. 4. Hypertension. 5. Atrial fibrillation. Not on anticoagulation. 6. Hyperlipidemia. 7. BPH. 8. Hernia repair. MEDICATIONS: Please see medication reconciliation. ALLERGIES: Codeine. FAMILY HISTORY: Reviewed and noncontributory. SOCIAL HISTORY: He lives with his . He has not had a drink of alcohol for about 50 years. He has never smoked. REVIEW OF SYSTEMS: A 10-point review of systems is conducted and is negative except per HPI. PHYSICAL EXAM: Blood pressure last was 99/65, heart rate 66, respiration rate 16, saturating 92% on room air. Initial temperature was 38. GENERAL: The patient is a pleasant man who clearly is having trouble coughing up his sputum. He is in no real distress though. HEENT: Shows him to be normocephalic, atraumatic. CARDIOVASCULAR: Shows a regular rate and rhythm. No murmurs, rubs , or gallops. CHEST: Shows no ecchymoses over the left rib they are mildly tender to palpation. PULMONARY: Diminished breath sounds in the left base. He has some rhonchi that is best heard anteriorly. ABDOMINAL: Soft, nontender , nondistended. SKIN: Shows no rash. : Showed no Drake. NEUROLOGIC: Shows him to be alert and oriented x3. He is moving all extremities. PSYCHIATRIC: Shows normal mood and affect. LABS: White count is 22,000. Hemoglobin is 11.9, platelets are 574, INR is 1.1. Initial lactate was 4.3, down to 1.7. Urinalysis shows trace bacteria. Digoxin is 1.4. DATA: 1. Discussed this with Dr. Ramirez as well as Dr. Leblanc. Dr. Flores will consult tomorrow. 2. Chest x-ray, which I personally reviewed and interpreted shows left base consolidation similar to previous. 3. EKG, which I personally viewed and interpreted, shows sinus rhythm. He has a first degree AV block. He has a left bundle branch block. IMPRESSION AND PLAN: 1. Pulmonary: Clearly has a chronic problem with what I think is an acute pneumonia. Acute pneumonia very likely may be postobstructive versus due to decreased mucous clearance in the setting of rib fractures and splinting from pain. For the acute pneumonia, I will treat him with Levaquin as well as steroids, inhaled bronchodilators, Mucinex, pulmonary hygiene. I discussed this with Dr. Flores. He may also benefit from a bronch to clear his mucus. He would not be eligible for a biopsy yet as he is currently on Plavix. I will hold his Plavix, however. Dr. Flores will consult tomorrow. 2. Coronary artery disease, status post stent in August of 2016 as well as a coronary artery bypass grafting: Would recommend discussing with Cardiology regarding holding his Plavix although I think it is safe as he is more than a year out from his stent. He is not having any chest pain, or other coronary symptoms. 3. Paroxysmal atrial fibrillation: Currently normal sinus rhythm. He is not on anticoagulation. 4. Hypertension: Will continue his medications. 5. Hyperlipidemia: Statin. 6. BPH: Follow for urinary retention. 7. Code status: He would like to be Full Code, Full Tube. 8. Venous thromboembolism risk: He is moderate risk. We will hold his Lovenox while we are awaiting decision on bronchoscopy. /[id number]/MODL MTDD
[2017-10-05] MEDS: LIDOCAINE 4%/MENTHOL 1% PATCH TD SCH (21:05)
[2017-10-05] MEDS: PATCH REMOVAL 1 EA PATCH TD SCH (21:06)
[2017-10-05] MEDS: predniSONE 20 MG TAB PO SCH (21:26)
[2017-10-05] MEDS: guaiFENesin 600 MG TAB.ER PO SCH (21:26)
[2017-10-05] MEDS: IPRATROPIUM/ALBUTEROL 3 ML DEYVIAL IH SCH (22:07)
[2017-10-05] MEDS ORDERED: IBUPROFEN 200 MG TAB PO PRN (23:15)
[2017-10-05] MEDS ORDERED: SENNOSIDES/DOCUSATE SODIUM TAB PO PRN (23:15)
[2017-10-06] MEDS: IPRATROPIUM/ALBUTEROL 3 ML DEYVIAL IH SCH ×4 (05:47→21:25)
[2017-10-06 05:59] LABS: PLATELET COUNT 457 10^3/uL (150-400)
[2017-10-06] MEDS: FLUTICASONE HFA 220 MCG MDI IH SCH ×3 (08:25→21:25)
[2017-10-06] MEDS: LIDOCAINE 4%/MENTHOL 1% PATCH TD SCH (08:54)
[2017-10-06] MEDS: PANTOPRAZOLE SODIUM 40 MG TAB PO SCH (09:00)
[2017-10-06] MEDS: ASPIRIN 325 MG TAB PO SCH (09:00)
[2017-10-06] MEDS: guaiFENesin 600 MG TAB.ER PO SCH ×2 (09:00→20:53)
[2017-10-06] MEDS: predniSONE 20 MG TAB PO SCH (09:00)
[2017-10-06] MEDS: CARVEDILOL 6.25 MG TAB PO SCH ×2 (09:02→17:49)
[2017-10-06] MEDS: [UNRECOGNIZED DRUG - MIXTURE] PO SCH (09:02)
--- NOTE | 2017-10-06 10:40 | ASMTCMCOM ---
CM Note CM Note Notes: This CM met with patient's RICHARD Collier in the ER yesterday prior to patient's admission. Nando confirms that patient and his do live alone and patient has recently started HH services with [facility] . Nando and Yaz (pt's daughter) [phone] "[place] the road" and do check in with patient often. Today I contacted Kelli at [facility] and have confirmed that patient is active with [facility] services. CM to follow. Date Signed: 10/06/2017 10:40 AM Electronically Signed By:Jossie Izaguirre RN
--- NOTE | 2017-10-06 11:09 | ASMTCMCOM ---
CM Note CM Note Notes: Met with patient, his and son in law. Per the son in law the couple has been struggling to meet all needs at home on their own and n fact had HHC set up to start but he unfortunately was admitted here, I have placed a referral to [facility]. The family has resources for other area agencies to assist with other needs. CM to follow. Plan: Home with HHC when medically cleared for discharge to home. Date Signed: 10/06/2017 11:09 AM Electronically Signed By:Catie Villeda RN
--- NOTE | 2017-10-06 13:34 | GCON ---
[f rep st] CONSULTATION PULMONARY CONSULTATION DATE OF CONSULTATION: 10/06/2017 REASON FOR CONSULTATION: Left lower lobe atelectasis/infiltrate/consolidation. HISTORY: The patient is a very pleasant, 87-year-old gentleman who was admitted yesterday with weakness. This was associated with increasing cough, pulmonary congestion, and white sputum. He denied any fevers, chills or sweats , but he has felt sick. He is a never smoker. 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 He was seen by Dr. Rocha 3 months ago for abnormalities on chest x-ray and CT scan. He had patchy infiltrates in the left base at that time. He also had a more upper lobe loculated effusion, and an upper lobe lesion. These latter 2 issues have for the most part resolved. He declined bronchoscopy at this time. He has since fallen, and broke 3 ribs also on the left. He was hospitalized for observation overnight. He has had 3 CT scans of the chest since June. In addition to his increasing cough, congestion, and wheezing, he has had a 30-40 pound weight loss over the last 6 months. PAST MEDICAL HISTORY: Remarkable for coronary artery disease. He is status post CABG. There is a history of aortic valve replacement, hypertension, paroxysmal atrial fibrillation, and hyperlipidemia. DRUG ALLERGIES: Codeine. FAMILY HISTORY: Noncontributory. SOCIAL HISTORY: The patient is , lives with his . Alcohol and tobacco are negative. REVIEW OF SYSTEMS: A 10-point review of systems is negative except as mentioned above. He does take a baby aspirin and has done so for years. This has not recently been held. He is on inhaled therapies including albuterol in the past, and most recently Flovent. He feels these help, but does not recall being told he had asthma. There is no history of COPD. PHYSICAL EXAMINATION: GENERAL: Reveals an elderly gentleman who is in no distress. He is on no oxygen. He is conversant and appropriate. VITAL SIGNS: Blood pressure is approximately 110/55, heart rate 60, and regular. Respiratory rate is 18. He has a loose cough that is intermittent. He is afebrile. HEENT: Unremarkable for lymphadenopathy or thyromegaly. There is no significant nasal congestion, not obvious postnasal drainage. There is no jugular venous distention. CHEST: Clear peripherally. With cough, some central rhonchi are noted. There are no wheezes. Expiratory phase is perhaps mildly prolonged. There are no rales. Breath sounds are more diminished at the left base compared to the right. There are no consolidative changes, and there is no egophony. HEART: Bradycardic, regular, and without gallop. A systolic murmur is present. ABDOMEN: Soft, nontender. Bowel sounds are present. EXTREMITIES: Without edema, cords, or tenderness. NEUROLOGIC: Examination is intact. He moves all extremities equally. He was not ambulated. DATABASE: Radiologic studies are as outlined above. LABORATORY: White blood cell count is 21,000, hematocrit 31, platelets normal. PT and PTT were within normal limits on admission. Sodium is 134, potassium 4.4, BUN 15 with a creatinine 0.6. Glucose is 131, calcium 8.5. Lactate on admission was 4.3, and dropped to 1.7. Procalcitonin was not obtained. Urinalysis was negative for white blood cells. Digoxin level was 1.4. ASSESSMENT: 1. Progressive changes in the left lower lobe, now with more complete atelectasis as opposed to patchy infiltrates in that area. I do not see a mass. Bronchi appear for the most part to be patent. However, some mucus appears to be present in left lower lobe bronchi. Upper lobe changes and an effusion associated with his previous rib fractures appear to have resolved. I have discussed all the issues with the patient. Bronchoscopy does seem indicated to assess left lower lobe airway, and to obtain deep cultures and cytology. Malignancy, however, based on the appearance, seems less likely. 2. Chronic bronchitis. This is associated with cough and mucus that goes back at least 1 year, and has been somewhat worse over the last several months. The mucus is largely white, and he is not manifesting clear symptoms of an infectious process. However, his being treated for pneumonia with Unasyn, and his presentation with weakness and left lower lobe consolidation could certainly be related to a pneumonia in this elderly gentleman. Putting him back on albuterol may be of benefit. A component of reactive airways disease may be present. 3. History of coronary artery disease and other problems as outlined in the history of present illness. PLAN: Bronchoscopy will be performed later today. No biopsies are planned unless endobronchial lesions are noted. [place] biopsy samples, washings, and lavage will be obtained for cultures and cytologies. Following of the procedure, albuterol will be added by nebulizer. Further plans and recommendations will be made based after the bronchoscopy and its findings. /[id number]/MODL MTDD
--- NOTE | 2017-10-06 13:52 | WOCRNPDOC ---
[facility] Advanced Assessment Note - Skin Integrity Problem, Advanced Assess Right Foot Dressing Type: Gauze, Kendall Dressing Description: Clean/Dry, Intact Exudate Amount: None Integumentary Issue Intervention: Visualized Under Dressing Tamiko Wound Tissue: Calloused Tamiko Wound Swelling: None Wound Bed Color: [place], Red, Yellow Wound Bed Constitution: Granulation Tissue (40%), Red/[place] - Non Granular Tissue (60%) Wound Edges: Attached Site Measurement - Head-to-Toe Length X Width X Depth (cm): 1.2x1.5x0.2 Skin Integrity Problem Comment: Chronic wound followed by Dr. Bird (elevator dispatcher ) for several years. Patient reports having failed mulitple grafts to the area. Wound is located on the first metatarsal head and due to foot deformities is constantly loaded and rubbed when patient ambulates. No sign of infection. Continue plan of care from poidiatry when patient returns home. In the meanwhile will initiate moist wound healing. Wound care will sign off.
[2017-10-06] MEDS ORDERED: EPINEPHrine 1 MG/ML INJ ONE ×2 (14:16→15:02)
[2017-10-06] MEDS ORDERED: ALBUTEROL 3 ML DEYVIAL ONE (14:17)
[2017-10-06] MEDS ORDERED: LIDOCAINE 2% JELLY 5 ML TUBE ONE (14:17)
--- NOTE | 2017-10-06 14:43 | PDMN ---
Medical Necessity Medical necessity: Pt meets inpt criteria per MD order and Pulmonary Disease GRG , est LOS>2MN for ongoiong evaluation of left lower lobe atelectasis/ consolidation/infiltrate, pulmonary consult, bronchoscopy pending- will obtain cultures and cytology, pt presented w/weakness, fever, cough, WBC's 21.27, likely acute PNA- on IV ABX, pt w/recent hx of rib fractures and splinting from pain, comorbid adv age, signif wt loss over past 6-8mos. PT/OT evals pending.
[2017-10-06] MEDS ORDERED: fentaNYL 100 MCG/2 ML INJ ONE (15:02)
[2017-10-06] MEDS ORDERED: MIDAZOLAM 2 MG/2 ML VIAL ONE (15:02)
[2017-10-06] MEDS ORDERED: LIDOCAINE 1% 300 MG/30 ML SDV ONE (15:05)
--- NOTE | 2017-10-06 16:21 | GPN ---
[f rep st] PROCEDURE NOTE PROCEDURE: Bronchoscopy. INDICATION: Chronic left lower lobe abnormalities now with atelectasis. This procedure is being done to investigate the cause of these changes, obtain cultures and cytologies. DESCRIPTION OF PROCEDURE: The procedure was done in the endoscopy unit. Informed consent was obtained from the patient. Appropriate time-out was performed. Conscious sedation included 4 mg of Versed and 100 mcg of fentanyl. 5 cc of 4% lidocaine was used to topically anesthetize the posterior oropharynx. Approximately 20 cc of 1% lidocaine was used for topical anesthesia of the tracheobronchial tree. The fiberoptic bronchoscope was passed via bite block orally into the larynx. The vocal cords were identified. They move normally with respiration. The bronchoscope was advanced into the trachea and the lower tracheobronchial tree bilaterally. All areas were observed to at least the subsegmental level. The right side was entirely normal. The left upper lobe and lingula were normal. There were secretions retained in the right lower lobe. These were purulent with some mucus plugging. Secretions were removed with suction and lavage. The underlying mucosa was quite erythematous and appeared edematous. The mucosa was somewhat friable. It was unclear whether this friability was related to infection and mucous plugging in that area or possibly an underlying abnormality such as mucosal malignancy. Washes and lavage from the left lower lobe were taken and sent for cultures and cytologies. A brush biopsy sample was taken for cytologies and endobronchial biopsies from the left lower lobe were sent for pathologic examination. The patient tolerated the procedure well. Vital signs and oxygen saturations on supplemental oxygen remained normal throughout the procedure. IMPRESSION: 1. Mucus plugging. This was present in the left lower lobe consistent with possible pneumonia. 2. His underlying left lower lobe mucosal changes are as described above. These could be related to inflammation/infection, however an underlying abnormality such as malignancy cannot be excluded at this time. Appropriate samples were sent to the laboratory. /[id number]/MODL MTDD
--- NOTE | 2017-10-06 17:10 | HOSPPROG ---
Hospitalist Progress Note Assessment/Plan: * Pneumonia with sepsis (POA) -Levaquin * LLL collapse due to mucus plugging s/p bronch -biopsy/cultures pending * Increased lactate - sepsis vs. dehydration * CAD/stent/CABG -holding plavix for bronch - resume before discharge * Unintentional weight loss - 40 pounds * Afib -digoxin level okay * AVR Subjective: Feels better Objective: Vital Signs Temp Pulse Resp BP Pulse Ox 36.4 C 56 L 16 97/51 L 99 10/06/17 14:05 10/06/17 14:05 10/06/17 15:40 10/06/17 15:40 10/06/17 15:40 10/05/17 10/06/17 10/07/17 05:59 05:59 05:59 Intake Total 150 Balance 150 PT 15.2 SEC (12.0-15.0) H 10/05/17 14:45 INR 1.18 (0.83-1.16) H 10/05/17 14:45 EKG viewed, my personal interpretation is - LBBB CXR - LLL infiltrate Laboratory Tests 10/05/17 10/06/17 14:45 04:50 WBC 22.61 H 21.27 H - Physical Exam Constitutional: no apparent distress, appears nourished, not in pain Cardiovascular: regular rate and rhythym, no murmur, rub, or gallop Respiratory: no respiratory distress, no rales or rhonchi, clear to auscultation Gastrointestinal: normoactive bowel sounds, soft, non-tender abdomen, no palpable masses Skin: no rashes or abrasions, no fluctuance, no induration Neurologic: AAOx3, sensation intact bilaterally Psychiatric: interacting appropriately, not anxious, not encephalopathic, thought process linear ICD10 Worksheet Patient Problems: Problems Problem Status Onset Chest congestion Acute Collapsed lung Acute Sepsis Acute Weakness Acute Weight loss Acute Cellulitis and abscess of foot Acute Chest pain Acute Fall Acute Rib contusion Acute Rib fractures Acute
[2017-10-06] MEDS: DIGOXIN 250 MCG TAB PO SCH (18:55)
[2017-10-06] MEDS: TAMSULOSIN HCL 0.4 MG CAP PO SCH (18:55)
[2017-10-06] MEDS: ATORVASTATIN CALCIUM 40 MG TAB PO SCH (18:56)
[2017-10-06] MEDS: PATCH REMOVAL 1 EA PATCH TD SCH (20:54)
[2017-10-07] MEDS: IPRATROPIUM/ALBUTEROL 3 ML DEYVIAL IH SCH ×4 (06:16→22:01)
[2017-10-07 06:44] LABS: PLATELET COUNT 551 10^3/uL (150-400)
[2017-10-07] MEDS: CARVEDILOL 6.25 MG TAB PO SCH ×2 (08:56→17:04)
[2017-10-07] MEDS: guaiFENesin 600 MG TAB.ER PO SCH ×2 (08:57→20:53)
[2017-10-07] MEDS: ASPIRIN 325 MG TAB PO SCH (08:57)
[2017-10-07] MEDS: [UNRECOGNIZED DRUG - MIXTURE] PO SCH (08:57)
[2017-10-07] MEDS: PANTOPRAZOLE SODIUM 40 MG TAB PO SCH (08:57)
[2017-10-07] MEDS: LIDOCAINE 4%/MENTHOL 1% PATCH TD SCH (08:57)
[2017-10-07] MEDS: predniSONE 20 MG TAB PO SCH (08:57)
[2017-10-07] MEDS: FLUTICASONE HFA 220 MCG MDI IH SCH ×2 (09:30→22:02)
--- NOTE | 2017-10-07 11:16 | HOSPPROG ---
Hospitalist Progress Note Assessment/Plan: * Chronic Pneumonia? with sepsis (POA) * wbc worse. since this is post-obstructive like pna and he had a course of levaquin in july without resolution - will switich to unasyn to transition to augmentin outpatient for 2-3 week course. discussed with ID * stop prednisone * LLL collapse due to mucus plugging s/p bronch -biopsy/cultures pending * Increased lactate - sepsis vs. dehydration - resolved * CAD/stent/CABG -holding plavix for bronch - resume before discharge * Unintentional weight loss - 40 pounds * Afib -digoxin level okay * AVR Subjective: feels about the same. maybe a little stronger Objective: Vital Signs Temp Pulse Resp BP Pulse Ox 36.5 C 75 16 108/67 94 10/07/17 08:00 10/07/17 10:15 10/07/17 08:00 10/07/17 10:15 10/07/17 10:15 Microbiology 10/06/17 15:30 Gram Stain - Final Lung Left Lower Lobe - Bronchial Washings Laboratory Results 10/07/17 05:08 10/06/17 10/07/17 10/08/17 05:59 05:59 05:59 Intake Total 1200 Balance 1200 PT 15.2 SEC (12.0-15.0) H 10/05/17 14:45 INR 1.18 (0.83-1.16) H 10/05/17 14:45 ct's and old records reviewed - Time Spent With Patient Time Spent with Patient: greater than 35 minutes (counselling patient and discussing with ID) Time Spent with Patient: Greater than 35 minutes spent on this patients care, greater than 50% of time spent counseling, educating, and coordinating care regarding the above mentioned plan. - Physical Exam Constitutional: no apparent distress, appears nourished, not in pain Eyes: anicteric sclera, EOMI Ears, Nose, Mouth, Throat: moist mucous membranes, hearing normal Respiratory: no respiratory distress, reduced air movement (lll. ), No expiratory wheeze Gastrointestinal: normoactive bowel sounds, soft, non-tender abdomen, no palpable masses Skin: warm Neurologic: AAOx3 Psychiatric: interacting appropriately, not anxious, not encephalopathic, thought process linear ICD10 Worksheet Patient Problems: Problems Problem Status Onset Chest congestion Acute Collapsed lung Acute Sepsis Acute Weakness Acute Weight loss Acute Cellulitis and abscess of foot Acute Chest pain Acute Fall Acute Rib contusion Acute Rib fractures Acute
[2017-10-07] MEDS: AMPICILLIN/SULBACTAM 3 GM in NS 100 ML IV SCH ×2 (12:23→17:04)
--- NOTE | 2017-10-07 12:24 | ASMTCMCOM ---
CM Note CM Note Notes: Spoke w/pt's and son in law Nando re; dc poc. 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 Son in law states they are also looking into arranging private pay non skilled assistance as well, CM gave him a brochure for [facility]. [facility] notified that pt may dc Monday. DC Plan: Home care/ [facility] (RN/PT/[employer] OPERATOR) Date Signed: 10/07/2017 12:24 PM Electronically Signed By:Kandi Mccarty RN
--- NOTE | 2017-10-07 16:56 | SOAPPROG ---
SOAP Progress Note Assessment/Plan: Assessment: Left lower lobe atelectasis. Mucous plugging was present. Left lower lobe pneumonia certainly possible. Left lower lobe bronchial changes present as well - may all be secondary to infection. Cytologies pending to exclude malignancy. On Unasyn. Plan: Await remaining bronchoscopy samples. Probably back Monday or Monday. Continue to work with strengthening, physical therapy and occupational therapy. Continue antibiotics and bronchopulmonary therapies. Could go home on Augmentin in the next several days from my standpoint. I can see him in follow- up in the office. All the above discussed with the patient and his . Subjective: Doing well. Says he feels better and is breathing better. Still somewhat weak Objective: Vital Signs Temp Pulse Resp BP Pulse Ox 36.4 C 73 16 119/65 95 10/07/17 14:45 10/07/17 14:45 10/07/17 14:45 10/07/17 14:45 10/07/17 14:45 Microbiology 10/06/17 15:30 Mycobacterial Smear (RUBY) - Final Lung Left Lower Lobe - Bronchial Washings 10/06/17 15:30 Gram Stain - Final Lung Left Lower Lobe - Bronchial Washings Laboratory Results 10/07/17 05:08 10/06/17 10/07/17 10/08/17 05:59 05:59 05:59 Intake Total 1200 Balance 1200 PT 15.2 SEC (12.0-15.0) H 10/05/17 14:45 INR 1.18 (0.83-1.16) H 10/05/17 14:45 Bronch wash aerobic culture without any pathogens so far. AFB smear negative. Cytologies pending Physical Exam - Physical Exam General Appearance: alert, no apparent distress, thin EENT: other (On room air) Neck: normal inspection (No JVD) Respiratory: lungs clear (Anteriorly), decreased breath sounds (At left base compared to the right.), rales (Present at both bases), other (Moving more air today on the left. Can now hear bronchial/consolidative changes with E to A sounds) Cardiac/Chest: regular rate, rhythm Abdomen: normal bowel sounds, non-tender, soft Skin: warm/dry, pallor Extremities: No pedal edema Neuro/Psych: no motor/sensory deficits (Nonfocal), No cognition abnormalities ICD10 Worksheet Patient Problems: Problems Problem Status Onset Chest congestion Acute Collapsed lung Acute Sepsis Acute Weakness Acute Weight loss Acute Cellulitis and abscess of foot Acute Chest pain Acute Fall Acute Rib contusion Acute Rib fractures Acute
[2017-10-07] MEDS: DIGOXIN 250 MCG TAB PO SCH (17:03)
[2017-10-07] MEDS: TAMSULOSIN HCL 0.4 MG CAP PO SCH (17:03)
[2017-10-07] MEDS: ATORVASTATIN CALCIUM 40 MG TAB PO SCH (17:03)
[2017-10-07] MEDS: PATCH REMOVAL 1 EA PATCH TD SCH (21:02)
[2017-10-08] MEDS: AMPICILLIN/SULBACTAM 3 GM in NS 100 ML IV SCH ×5 (00:28→23:44)
[2017-10-08 05:24] LABS: PLATELET COUNT 547 10^3/uL (150-400)
[2017-10-08] MEDS: IPRATROPIUM/ALBUTEROL 3 ML DEYVIAL IH SCH ×4 (06:05→21:40)
[2017-10-08] MEDS: LIDOCAINE 4%/MENTHOL 1% PATCH TD SCH (08:40)
[2017-10-08] MEDS: [UNRECOGNIZED DRUG - MIXTURE] PO SCH (08:40)
[2017-10-08] MEDS: PANTOPRAZOLE SODIUM 40 MG TAB PO SCH (09:10)
[2017-10-08] MEDS: ASPIRIN 325 MG TAB PO SCH (09:10)
[2017-10-08] MEDS: CARVEDILOL 6.25 MG TAB PO SCH ×2 (09:10→17:23)
[2017-10-08] MEDS: guaiFENesin 600 MG TAB.ER PO SCH ×2 (09:10→20:20)
[2017-10-08] MEDS: FLUTICASONE HFA 220 MCG MDI IH SCH ×2 (09:36→21:40)
--- NOTE | 2017-10-08 10:48 | HOSPPROG ---
Hospitalist Progress Note Assessment/Plan: * Chronic Pneumonia? with sepsis (POA) * wbc better today. since this is post-obstructive like pna and he had a course of levaquin in july without resolution - will switich to unasyn to transition to augmentin outpatient for 2-3 week course. discussed with ID * would like to see WBC clearly improving before dc * swallow eval also ordered * LLL collapse due to mucus plugging s/p bronch -biopsy/cultures pending * Increased lactate - sepsis vs. dehydration - resolved * CAD/stent/CABG -holding plavix for bronch - resume before discharge -watch BP - may need to lower coreg dose * Unintentional weight loss - 40 pounds * Afib -digoxin level okay * AVR * weakness * looks like will go home with home health Subjective: feeling better Objective: Vital Signs Temp Pulse Resp BP Pulse Ox 36.3 C 74 16 99/57 L 93 10/08/17 08:00 10/08/17 09:10 10/08/17 08:00 10/08/17 09:10 10/08/17 08:00 Microbiology 10/06/17 15:30 Mycobacterial Smear (RUBY) - Final Lung Left Lower Lobe - Bronchial Washings 10/06/17 15:30 Gram Stain - Final Lung Left Lower Lobe - Bronchial Washings Laboratory Results 10/08/17 04:41 10/08/17 04:41 10/07/17 10/08/17 10/09/17 05:59 05:59 05:59 Intake Total 1200 420 Output Total 100 Balance 1200 420 -100 PT 15.2 SEC (12.0-15.0) H 10/05/17 14:45 INR 1.18 (0.83-1.16) H 10/05/17 14:45 - Physical Exam Constitutional: no apparent distress, appears nourished, not in pain Eyes: anicteric sclera, EOMI Ears, Nose, Mouth, Throat: moist mucous membranes, hearing normal Cardiovascular: regular rate and rhythym Respiratory: no respiratory distress, clear to auscultation, reduced air movement (left base) Gastrointestinal: normoactive bowel sounds, soft, non-tender abdomen, no palpable masses Skin: warm Neurologic: AAOx3 Psychiatric: interacting appropriately, not anxious, not encephalopathic, thought process linear ICD10 Worksheet Patient Problems: Problems Problem Status Onset Chest congestion Acute Collapsed lung Acute Sepsis Acute Weakness Acute Weight loss Acute Cellulitis and abscess of foot Acute Chest pain Acute Fall Acute Rib contusion Acute Rib fractures Acute
[2017-10-08] MEDS: TAMSULOSIN HCL 0.4 MG CAP PO SCH (17:22)
[2017-10-08] MEDS: ATORVASTATIN CALCIUM 40 MG TAB PO SCH (17:22)
[2017-10-08] MEDS: DIGOXIN 250 MCG TAB PO SCH (17:22)
--- NOTE | 2017-10-08 19:14 | SOAPPROG ---
SOAP Progress Note Assessment/Plan: Assessment: Left lower lobe atelectasis. Mucous plugging was present. Left lower lobe pneumonia certainly possible. Left lower lobe bronchial changes present as well - may all be secondary to infection. Cytologies pending to exclude malignancy. On Unasyn. CARRIZALES. On duo nebs and Flovent. Guaifenesin for secretions. Stable. Plan: Await remaining bronchoscopy results: Final cultures and cytologies. Probably back Monday or Monday. Continue to work with strengthening, physical therapy and occupational therapy. Continue antibiotics and bronchopulmonary therapies. Repeat two view chest x-ray tomorrow. Could go home on Augmentin in the next several days from my standpoint. I can see him in follow-up in the office. All the above discussed with the patient and his . Subjective: Feels better, little bit stronger. Still with some pulmonary congestion, but overall better Objective: Vital Signs Temp Pulse Resp BP Pulse Ox 36.6 C 66 16 111/56 L 96 10/08/17 15:50 10/08/17 17:45 10/08/17 17:45 10/08/17 17:23 10/08/17 17:45 Microbiology 10/06/17 15:30 Gram Stain - Final Lung Left Lower Lobe - Bronchial Washings Bronchial Washings Culture - Final Gail Albicans 10/06/17 15:30 Mycobacterial Smear (RUBY) - Final Lung Left Lower Lobe - Bronchial Washings Laboratory Results 10/08/17 04:41 10/08/17 04:41 10/07/17 10/08/17 10/09/17 05:59 05:59 05:59 Intake Total 1200 420 300 Output Total 100 Balance 1200 420 200 PT 15.2 SEC (12.0-15.0) H 10/05/17 14:45 INR 1.18 (0.83-1.16) H 10/05/17 14:45 Bronchoscopy: No additional information. Gail from the aerobic culture is not a pathogen. No specific organisms identified so far. Cytologies pending. Physical Exam - Physical Exam General Appearance: alert, no apparent distress EENT: other (On room air) Neck: normal inspection Respiratory: decreased breath sounds (At left base), rales (Few rales at right base. Few rales at left however breath sounds are diminished at the left base compared to the right, with some e to a changes. Air movement is not as good today possibly indicating some recurrent mucus plugging?), rhonchi (Centrally with cough), No respiratory distress Cardiac/Chest: regular rate, rhythm, systolic murmur Abdomen: normal bowel sounds, non-tender, soft Skin: warm/dry, pallor Extremities: No pedal edema Neuro/Psych: no motor/sensory deficits, No cognition abnormalities ICD10 Worksheet Patient Problems: Problems Problem Status Onset Cellulitis and abscess of foot Acute Chest pain Acute Fall Acute Rib contusion Acute Rib fractures Acute Weight loss Acute Weakness Acute Chest congestion Acute Collapsed lung Acute Sepsis Acute
[2017-10-08] MEDS: PATCH REMOVAL 1 EA PATCH TD SCH (20:38)
[2017-10-09] MEDS: AMPICILLIN/SULBACTAM 3 GM in NS 100 ML IV SCH ×3 (05:31→17:27)
[2017-10-09] MEDS: IPRATROPIUM/ALBUTEROL 3 ML DEYVIAL IH SCH ×3 (06:25→15:45)
[2017-10-09 06:39] LABS: PLATELET COUNT 355 10^3/uL (150-400)
[2017-10-09] MEDS: guaiFENesin 600 MG TAB.ER PO SCH (08:13)
[2017-10-09] MEDS: LIDOCAINE 4%/MENTHOL 1% PATCH TD SCH (08:14)
[2017-10-09] MEDS: ASPIRIN 325 MG TAB PO SCH (08:14)
[2017-10-09] MEDS: PANTOPRAZOLE SODIUM 40 MG TAB PO SCH (08:14)
[2017-10-09] MEDS: CARVEDILOL 6.25 MG TAB PO SCH ×2 (08:14→17:12)
[2017-10-09] MEDS: [UNRECOGNIZED DRUG - MIXTURE] PO SCH (08:22)
[2017-10-09] MEDS: FLUTICASONE HFA 220 MCG MDI IH SCH (10:18)
--- NOTE | 2017-10-09 11:44 | ASMTCMCOM ---
CM Note CM Note Notes: REGULO spoke to JAZMIN Corral regarding d/c POC. Pt and his has lost a significant amount of weight over the last year. Pt would benefit from [facility]. REGULO spoke to Cherelle at [facility] and made a referral for pt and his . Cherelle will call pts home to obtain more information to complete the referral process. CM to follow. Plan: [facility]; JAZMIN, RESEARCH AND DEVELOPMENT TECHNICIAN, PT Date Signed: 10/09/2017 11:43 AM Electronically Signed By:CLINTON Soni
--- NOTE | 2017-10-09 13:14 | GCON ---
[f rep st] CONSULTATION INFECTIOUS DISEASE CONSULTATION DATE OF CONSULTATION: 10/09/2017 PHYSICIAN REQUESTING CONSULTATION: Curtis Agee MD. REASON FOR CONSULTATION: Chronic pneumonia left lower lobe. HISTORY OF PRESENT ILLNESS: An 87-year-old man who was admitted on October 05 with progressive weakne ss, weight loss, cough, and fever. The patient's overall problems start over the last year, when he has had progressive weight loss. He has general anorexia and difficulty eating and described progres sive dysphagia for solid foods. Over the last 3 months, he has had more rapid weight loss and develo ped dyspnea on exertion and a productive cough. This became more severe and triggered his admission. He has been evaluated as an outpatient by Pulmonary, and at that time, the patient deferred further workup with bronchoscopy. Since admission, patient has undergone bronchoscopy on October 06, which dem onstrated erythematous mucosa and mucus plugging. Cultures were taken from that sample, but patient had been on antibiotics for 2 days. Cultures show Gail and the Gram stain was 1+ GNR and 1+ GPC. AFB smear was negative. Fungal and AFB cultures are still pending. Path is also pending. Initiall y, patient was given levofloxacin from the to , and then changed to Unasyn. Today, patient states that he feels 60% better and attributes this to improve ease of breathing and decreased cough, as well as increased appetite. He denies night sweats, fevers over the 3 months except at time of a dmission. He has no other GI symptoms other than constipation. No bright red blood per rectum or me endy. He is a lifelong nonsmoker, but have did have beryllium exposure in the 1950s. Reviewing his laboratory from July of 2017, he had a worsening leukocytosis with a white count initially at 14. Thi s was 22, and peaked at 28 during his hospitalization. He also has thrombocytosis. Both have improv ed over hospitalization with antibiotic therapy. He also received a prednisone burst during hospital ization from the to the . The patient strongly desires discharge to home today. History source is records, patient, and his family, who are present during my exam and history. PAST MEDICAL HISTORY: Atrial fibrillation, coronary artery disease, status post CABG 11 years ago, h yperlipidemia, peripheral neuropathy, sinusitis, mitral valve repair. 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 He has been 60 years. He was raised in [place]. He lived in [place], [place], and has been in [place] for 52 years. N ever has smoked tobacco. Does not use alcohol. No recent international travel. FAMILY HISTORY: Positive for high cholesterol. ALLERGIES: To codeine. No antibiotics. MEDICATIONS: Aspirin, atorvastatin, carvedilol, Plavix, digoxin, lisinopril, tamsulosin, calcium, an d he has been receiving Unasyn 3 g IV q.8 since October 07, and received levofloxacin from the to . REVIEW OF SYSTEMS: A complete 10-point review of systems was performed and is negative except as men tioned in the HPI. PHYSICAL EXAM: VITAL SIGNS: Blood pressure 131/56, heart rate is 65, respiratory rate is 16, satura tion 96% on room air, temperature 37.1. His T-max is 38.1. GENERAL: This is a very pleasant male. He is [id number], but conversational and fully oriented. HEENT: He has reactive pupils. No c onjunctival hemorrhages. Oropharynx notable for very dry mucous membranes and fair dentition. No ob vious caries. No ulcerations or exudates. Uvula is slightly deviated to the right. CARDIOVASCULAR: Regular rate with a 2/6 systolic murmur. CHEST: Clear to auscultation bilaterally. ABDOMEN: Sof t, nontender. Bowel sounds are present. EXTREMITIES: Patient had mild edema in all 4 extremities. No nail findings. No peripheral stigmata of endocarditis. SKIN: No rashes. NEUROLOGIC: He is al ert and oriented x4. Moving all 4 extremities equally. LABORATORY: Microbiology, blood cultures from October 05 are no growth to date. Respiratory panel PC R is negative. Sputum culture showed C albicans. Bronchial washing left lower lobe showed Gail a lbicans. Otherwise, fungal and mycobacterial cultures are pending. CT scan was personally reviewed by me, which demonstrated some scattered granulomatous disease/consolidation of the left lower lobe. Laboratory: White count 10/09/2017, 18.5; hematocrit 35, platelets of 355, 83% neutrophils, 4% lymp hocytes, 11% monocytes. Creatinine is 0.7. Digoxin 1.4. Urinalysis was unremarkable. ASSESSMENT AND PLAN: This is an 87-year-old male with past medical history of coronary artery diseas e, who describes a fairly profound weight loss and progressive dysphagia for solid foods and a chroni c left lower lobe pneumonia. This likely relates to his chronic odynophagia and is likely reflective of chronic aspiration pneumonia. Weight loss is likely multifactorial related to chronic infection as well as difficulty eating. 1. Agree with coverage for typical pathogens seen in the oral cavity, strep and anaerobes, with Unas yn. Agree with transition to Augmentin for another 2 weeks, with followup imaging as an outpatient a s well as symptoms. 2. Would recommend evaluation of a swallowing study with video fluoroscopic swallow eval and an uppe r GI due to degree of weight loss, would include upper GI. 3. Also, in the differential, based on where he has lived, you could consider blastomycoses, coccidi omycosis, as well as TB, due to his symptoms, but with clinical improvement on current antibiotic the rapy, these additional etiologies seem less likely. Time was 80 minutes, greater than 50% of the time spent with education and counseling of the patient and his family regarding differential diagnoses, planned treatment, and evaluation of dysphagia for s olid foods. Also, coordination of care with primary team. Thank you for this consultation. We are happy to see the patient in followup care as an outpatient. /[id number]/MODL
--- NOTE | 2017-10-09 13:33 | PDINTPN ---
Roll Table Operator Progress Note Assessment/Plan: 87 M with known pulmonary nodules and berylium exposure but stable until recent fall and rib fractures, admitted with LLL collapse and hypoxia. Underwent bronch 10/06 with mucous plugs and ab normal mucosa, but cultures unrevealing and path still pending. Failed esophagram with clear aspiration. * LLL collapse- may be related to aspiration with associated mucous plugging. Video esophagram pending? Will see Dr. Flores as outpatient 1-2 weeks Subjective: Feels OK, getting dc soon. Objective: Vital Signs Temp Pulse Resp BP Pulse Ox 37.1 C 69 16 97/59 L 95 10/09/17 08:00 10/09/17 10:19 10/09/17 10:19 10/09/17 08:14 10/09/17 10:25 Microbiology 10/06/17 15:30 Gram Stain - Final Lung Left Lower Lobe - Bronchial Washings Bronchial Washings Culture - Final Gail Albicans Laboratory Results 10/09/17 04:59 10/09/17 06:44 10/08/17 10/09/17 10/10/17 05:59 05:59 05:59 Intake Total 420 300 Output Total 100 Balance 420 200 PT 15.2 SEC (12.0-15.0) H 10/05/17 14:45 INR 1.18 (0.83-1.16) H 10/05/17 14:45 Physical Exam - Physical Exam General Appearance: alert, no apparent distress, thin EENT: PERRL/EOMI Neck: supple Respiratory: lungs clear, decreased breath sounds (left base), No respiratory distress, No accessory muscle use Cardiac/Chest: regular rate, rhythm, No edema Abdomen: normal bowel sounds, non-tender, soft, No distended Skin: normal color, warm/dry, No cyanosis Lymphatic: no adenopathy Extremities: No pedal edema Neuro/Psych: alert, normal mood/affect, oriented x 3 ICD10 Worksheet Patient Problems: Problems Problem Status Onset Chest congestion Acute Collapsed lung Acute Sepsis Acute Weakness Acute Weight loss Acute Cellulitis and abscess of foot Acute Chest pain Acute Fall Acute Rib contusion Acute Rib fractures Acute
--- NOTE | 2017-10-09 16:39 | ASMTLACE ---
LACE Length of stay for Answers: 4-6 days current admission Acuity / Level of Answers: Yes Care: Did the patient have an inpatient admission? Comorbidities - select Answers: Coronary Artery Disease all that apply Other Notes: HTN; AFib; HLD # of Emergency department Answers: 1-2 visits in the last 6 months Score: 11 Date Signed: 10/09/2017 04:37 PM Electronically Signed By:CLINTON Soni
--- NOTE | 2017-10-09 16:45 | ASMTDCNOTE ---
Case Management Discharge Discharge Order Complete? Answers: Yes Patient to Obtain Answers: via Family Medications Transportation Arranged Answers: Family/Friends EMTALA Complete Answers: No Case Management Transport Answers: No Form Complete Faxed Final Orders Answers: Yes Agency/Facility Transfer Answers: Yes Report Printed & Faxed to Receiving Agency Family Notified Answers: Yes Discharge Comments Notes: Pts case discussed w/ Dr. Agee and JAZMIN Corral regarding d/c POC. Pt is being discharged today. SPL is recommending a thickener. CM notified [facility] of the d/c. DC orders sent. [facility] reports that their resumption of care is typically 24-48hrs. CM informed [facility] that pts son in law Nando would like to be the menswear salesperson. CM set pt up w/ [facility] [facility]. CM available for changes. Plan: [facility]; PT, OT, RN, SPL, MUTUEL DEPARTMENT MANAGER Date Signed: 10/09/2017 04:43 PM Electronically Signed By:CLINTON Soni
--- NOTE | 2017-10-09 16:49 | PDIAF ---
- Diagnosis Diagnosis: Aspiration Pneumonia, Dysphagia Code Status: Full Code - Medication Management Discharge Medications: Medications to Continue on Transfer Aspirin [Aspirin 325 mg (*)] 325 mg PO DAILY 10/05/17 [Last Taken 10/05/17] Atorvastatin Calcium [Lipitor 40 mg (*)] 40 mg PO DAILY@10/05/17 [Last Taken 10/04/17] Calcium/D3/Mag Ox/Computer Aided Design Designer/Hiro/Zn [Caltrate+D3 Plus Mineral Minis] 1 each PO DAILY 10/05/17 [Last Taken 10/05/17] Carvedilol [Coreg (*)] 6.25 mg PO BIDMEAL 10/05/17 [Last Taken 10/05/17] Digoxin 250 mcg PO DAILY@10/05/17 [Last Taken 10/04/17] Fluticasone Hfa 220 Mcg [Flovent 220 MCG Hfa MDI (*)] 2 puffs IH BID 10/05/17 [ Last Taken 10/05/17] Ibuprofen [Motrin (*)] 200 mg PO HS PRN 10/05/17 [Last Taken Unknown] Multivitamins [Multivitamin (*)] 1 each PO DAILY 10/05/17 [Last Taken 10/05/17] Omeprazole 20 mg PO DAILY@10/05/17 [Last Taken 10/04/17] Sennosides/Docusate Sodium [Senna-Docusate Sodium Tablet] 1 each PO PRN PRN [Last Taken Unknown] Tamsulosin HCl [Flomax 0.4 MG (*)] 0.4 mg PO DAILY@10/05/17 [Last Taken 10/04] Acetaminophen [Tylenol 325mg (*)] 650 mg PO Q4HRS PRN tab 10/09/17 [Last Taken Unknown] Albuterol [Proventil Inhaler HFA (*)] 2 puffs IH Q4 PRN #1 mdi 10/09/17 [Last Taken Unknown] Amoxicillin/Clavulanate Pot [Augmentin 875 MG TAB (*)] 875 mg PO BID #28 tab [Last Taken Unknown] Lidocaine 4%/Menthol 1% [Icy Hot Lidocaine/Menthol 4%/1% Patch (*)] 1 patch TD DAILY #30 patch 10/09/17 [Last Taken Unknown] guaiFENesin [Mucinex 600 MG (*)] 1,200 mg PO BID #20 tab.er 10/09/17 [Last Taken Unknown] Usp Antibiotics: Augmentin 875mg PO bid Campground Caretaker Antibiotic Stop Date: 10/23/17 Discharge Medications: Refer to the Discharge Home Medication list for PRN reason. PICC Care - Routine: N/A - Orders Services needed: Home Care, Registered Nurse, Certified Carburetor Mechanic, Physical Therapy, Occupational Therapy, Speech Language Pathologist Home Care Face to Face: I certify that this patient was under my care and that I had the required [id number] encounter meeting the encounter requirements on the discharge day. My findings support the fact that the patient is homebound as defined in Home Care Face to Face Continued: CMS Chapter 7 Medicare Benefits Manual 30.1.1 , The condition of the patient is such that there exists a normal inability to leave home and consequently, leaving home would require a considerable and taxing effort. Isolation Type: None Oxygen: NA Diet Texture: Regular Texture Diet, Thin Liquids, Meds Whole in Puree Weigh Patient: weekly Drake: Not applicable - Labs/Radiology CBC w/diff Date: 10/16/17 CMP Date: 10/16/17 Call or Fax Lab and Imaging Results to: Dr. Lalita Tran - Follow Up Care Current Providers and Referrals: Patient,NotPresent [Unknown] - As per Instructions Guillermo Celis MD [Primary Care Provider] - 3-5 days Benji Flores MD [Medical Doctor] - follow up in 1 week Rigoberto Blank MD [Medical Doctor] - follow up in 1 week
[2017-10-09 17:10] VITALS: BP 122/63
[2017-10-09] MEDS: TAMSULOSIN HCL 0.4 MG CAP PO SCH (17:12)
[2017-10-09] MEDS: DIGOXIN 250 MCG TAB PO SCH (17:13)
[2017-10-09] MEDS: ATORVASTATIN CALCIUM 40 MG TAB PO SCH (17:46)
--- NOTE | 2017-10-09 19:12 | PDDCSUM ---
Discharge Summary Discharge Summary: DISCHARGE SUMMARY FOLLOW-UP ITEMS: Ongoing outpatient speech therapy reassessment DATE OF ADMISSION: 10/05/2017 DATE OF DISCHARGE: 10/09/2017 DISCHARGE DIAGNOSES: 1. Acute aspiration pneumonia present on admission 2. 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 Acute left lower lobe collapse 4. Chronic coronary artery disease 5. Chronic dysphagia 6. Paroxysmal atrial fibrillation 7. Acute metabolic lactic acidosis 8. Sepsis present on admission CONSULTATIONS: Pulmonary, speech therapy, infectious disease PROCEDURES / IMAGING: Bronchoscopy demonstrating mucus plugging, erythematous airways in the left lower lobe CHIEF COMPLAINT: Acute shortness of breath and cough SUBJECTIVE: Patient is feeling well at time discharge, he reports that he is feeling well and would like to be discharged home PHYSICAL EXAM ON DISCHARGE: Systolic blood pressure 100-130, heart rate 60, afebrile overnight, satting well on room air, alert awake oriented x3, no apparent distress, left lower lobe has inspiratory crackles but otherwise no expiratory wheezes or bronchial breath sounds throughout, heart rhythm is regular with a 2/6 systolic murmur at the sternum LABS ON DISCHARGE: White blood cell count 20865, hemoglobin 14, creatinine 0.7, lactic acid 1.7 HOSPITAL COURSE BY PROBLEM: The patient presented with sepsis and aspiration pneumonia, evidenced by a Q sofa score of 2 with hypotension, tachypnea, and a clear source of infection notably aspiration pneumonia in the left lower lobe. The patient had acute metabolic acidosis with a lactic acid level of 4.3 and received aggressive IV fluids as well as empiric IV antibiotics until his lactic acid level had cleared and his respiratory status had stabilized on supplemental oxygen. He was seen by Pulmonary in consultation and a bronchoscopy was performed which demonstrated mucus plugging and erythematous airways leasing representative of inflammation in the left lower lobe, most likely secondary to an infectious process. The patient was seen in consultation by Infectious Disease and after further collaboration on 10/09, we pursued aggressive workup of the patient's chronic dysphagia, as we suspected that his dysphagia was significantly impacting his ability to clear secretions, resulting in significant weight loss with poor oral intake of solid foods, and placing him at high risk for aspiration pneumonia, which was our final determination as to the likely cause of the patient's left lower lobe airspace disease. The patient underwent esophagram which resulted in obvious aspiration, and then he underwent a VFSS which demonstrated dysphagia but no overt aspiration. Consequently, it was the conclusion of her speech therapist that the patient is experiencing an esophageal component to his dysphagia and he should receive ongoing outpatient speech therapy as well as an outpatient GI consultation to determine the exact etiology as to his esophageal dysmotility. All these recommendations were presented to the patient and his family prior to discharge. The patient will receive 14 days of subsequent Augmentin, which was a direct conversion from his IV Unasyn received during his hospitalization. He will also come received as needed and Mucinex and as needed albuterol inhaler if he experiences any protracted coughing. DISCHARGE MEDICATIONS: Please see official discharge medication reconciliation sheet in chart , Augmentin 875 twice daily for 14 days, albuterol inhaler as needed, Mucinex as needed. Continue all other home cardiac an atrial fibrillation medications. DISCHARGE INSTRUCTIONS: Please follow up with Dr. Benji Flores as an outpatient, scheduled follow-up with Dr. Rigoberto Blank as an outpatient, and continue working with home PT, OT , speech therapist. Please coordinate with primary care provider within the next 3-5 days. TIME SPENT: Greater than 30 minutes were spent on direct patient care, as well as discharge planning and preparation.
--- NOTE | 2017-10-10 12:03 | ASDISCHSUM ---
Discharge Information Plan Status:Home with Home Health Medically Cleared to Leave:10/10/2017 Discharge Date:10/09/2017 07:54 PM D/C Disposition:Home Health Service [facility] D/C Disposition:[id number] Projected Discharge Date:10/10/2017 11:00 AM Transportation at D/C: Discharge Delay Reason: Follow-Up Date:10/10/2017 11:00 AM Discharge Slot: Final Diagnosis: Placement Information Referral Type:*Home Health Care Services Referral ID:[id number] Provider Name:[facility] Address 1:[address] Address 2: City:[place] Selection Factors: State:[place] Patient Contact Information Contact Name:SAE Relationship: Address:[address] Work Phone: [facility]:[place] Alternate Phone: State/Zip Code:[place] [address] Email: Financial Information Financial Class:Medicare Advantage Plans Primary Plan Desc:RODGERDiannCARL MEDICARE ADV Primary Plan Number:[id number] Secondary Plan Desc: Secondary Plan Number: Assessment Information LACE LACE Length of stay for Answers: 4-6 days current admission Acuity / Level of Answers: Yes Care: Did the patient have an inpatient admission? Comorbidities - select Answers: Coronary Artery Disease all that apply Other Notes: HTN; AFib; HLD # of Emergency department Answers: 1-2 visits in the last 6 months Score: 11 Date Signed: 10/09/2017 04:37 PM Electronically Signed By:CLINTON Soni [facility] CM Progress Note CM Note CM Note Notes: This CM met with patient's RICHARD Collier in the ER yesterday prior to patient's admission. Nando confirms that patient and his do live alone and patient has recently started HH services with [facility]. Nando and Yaz (pt's daughter) [phone] "[address]" and do check in with patient often. Today I contacted Kelli at [facility] and have confirmed that patient is active with PT/RN/INDOOR PLANT TECHNICIAN HH services. CM to follow. Date Signed: 10/06/2017 10:40 AM Electronically Signed By:Jossie Izaguirre RN [facility] CM Progress Note CM Note CM Note Notes: Met with patient, his and son in law. Per the son in law the couple has been struggling to meet all needs at home on their own and n fact had HHC set up to start but he unfortunately was admitted here, I have placed a referral to [facility]. The family has resources for other area agencies to assist with other needs. CM to follow. Plan: Home with [facility] when medically cleared for discharge to home. Date Signed: 10/06/2017 11:09 AM Electronically Signed By:Catie Villeda RN [facility] CM Progress Note CM Note CM Note Notes: Spoke w/pt's and son in law Nando re; dc poc. They want pt to dc home w/home care, pt already set up with [facility] (RN/PT/JOSE M). Son in law states they are also looking into arranging private pay non skilled assistance as well, CM gave him a brochure for [facility]. [facility] notified that pt may dc Monday. DC Plan: Home care/ [facility] (RN/PT/JOSE M) Date Signed: 10/07/2017 12:24 PM Electronically Signed By:Kandi Mccarty RN [facility] Progress Note CM Note CM Note Notes: REGULO spoke to JAZMIN Corral regarding d/c POC. Pt and his has lost a significant amount of weight over the last year. Pt would benefit from [facility]. REGULO spoke to Cherelle at [facility] and made a referral for pt and his . Cherelle will call pts home to obtain more information to complete the referral process. CM to follow. Plan: [facility]; RN, JOSE M, PT Date Signed: 10/09/2017 11:43 AM Electronically Signed By:CLINTON Soni Case Management Discharge Plan Note Case Management Discharge Discharge Order Complete? Answers: Yes Patient to Obtain Answers: via Family Medications Transportation Arranged Answers: Family/Friends EMTALA Complete Answers: No Case Management Transport Answers: No Form Complete Faxed Final Orders Answers: Yes Agency/Facility Transfer Answers: Yes Report Printed & Faxed to Receiving Agency Family Notified Answers: Yes Discharge Comments Notes: Pts case discussed w/ Dr. Agee and JAZMIN Corral regarding d/c POC. Pt is being discharged today. SPL is recommending a thickener. CM notified [facility] of the d/c. DC orders sent. [facility] reports that their resumption of care is typically 24-48hrs. CM informed [facility] that pts son in law Nando would like to be the personal lines account executive. CM set pt up w/ [facility]. CM available for changes. Plan: [facility]; PT, OT, RN, SPL, INDOOR PLANT TECHNICIAN Date Signed: 10/09/2017 04:43 PM Electronically Signed By:CLINTON Soni [facility]
== END 2017-10-09 19:54 | disposition home health service (06) | DRG 853 ==
LOC: EDUNIT# → F3E 18:42 → OBSVTOIN 10-06 12:45
PROVIDERS: ADMIT Student in an Organized Health Care Education/Training Program; ATTEND Internal Medicine
PROC: 0BDB8ZX Extraction of Left Lower Lobe Bronchus, Via Natural or Artificial Opening Endoscopic, Diagnostic (ICD-10-PCS; principal; 2017-10-06 15:00)
PROC: 0BCB8ZZ Extirpation of Matter from Left Lower Lobe Bronchus, Via Natural or Artificial Opening Endoscopic (ICD-10-PCS; principal; 2017-10-06 15:00)
PROC: 3E1F88X Irrigation of Respiratory Tract using Irrigating Substance, Via Natural or Artificial Opening Endoscopic, Diagnostic (ICD-10-PCS; principal; 2017-10-06 15:00)
PROC: 0B9B8ZX Drainage of Left Lower Lobe Bronchus, Via Natural or Artificial Opening Endoscopic, Diagnostic (ICD-10-PCS; principal; 2017-10-06 15:00)
PROC: 0BBJ8ZX Excision of Left Lower Lung Lobe, Via Natural or Artificial Opening Endoscopic, Diagnostic (ICD-10-PCS; principal; 2017-10-06 15:00)
DX: A41.9 Sepsis, unspecified organism (principal); J69.0 Pneumonitis due to inhalation of food and vomit; J98.19 Other pulmonary collapse; E87.2 Acidosis; I25.10 Atherosclerotic heart disease of native coronary artery without angina pectoris; R13.10 Dysphagia, unspecified; I48.0 Paroxysmal atrial fibrillation
CPT/HCPCS: 82435-PO; 82565-PO; 82947-PO; 83605-PO; 84132-PO; 84295-PO; 84484-PO; 84520-PO; 85014-PO; 92610-GN; 92611-GN; 96365; 97110-GP; 97116-GP; 97161-GP; 97166-GO; 97530-GO; 97530-GP; 97535-GO; G0378; G8978-GP-CK; G8979-GP-CJ; G8996-GN-CH; G8997-GN-CH; G8998-GN-CH; J0171; J0295; J1956; J2250; J3010; J7512; J7613

== ENCOUNTER 2017-12-23 02:35 | Emergency (ER) | payer OTHER ==
--- NOTE | 2017-12-23 02:41 | EDPHY ---
H & P Time Seen by Provider: 12/23/17 02:41 HPI/ROS: HPI CHIEF COMPLAINT: Possible mechanical trip and fall, left scalp hematoma and laceration on Plavix HISTORY OF PRESENT ILLNESS: 87-year-old male, presents emergency room by EMS from [facility]. Possibly had a mechanical trip and fall however patient is not red exactly recall. He fell backwards had head strike. Sustained a left posterior occiput hematoma and laceration. Patient complains of a headache. He is on Plavix. Denies chest pain or shortness of breath. Of note patient is rolled in hospice. Hospice is at bedside present. Of note I did review his discharge summary from the end of November. Where he had empyema aspiration pneumonia with a chest tube. He wished to enter hospice at [facility]. This evening he would like to go home. He does not want to be admitted. His head laceration will be repaired. Past Medical History: Hypertension, coronary disease, CABG, hypertension, aortic valve replacement, AFib, aspiration pneumonia Past Surgical History: No recent surgery Social History: The resides at [facility]. Enrolled in Family History: Noncontributory. ROS REVIEW OF SYSTEMS: 10 Systems were reviewed and negative with the exception of the elements mentioned in the history of present illness. Exam Constitutional triage nursing summary reviewed, vital signs reviewed, awake/ alert. Eyes normal conjunctivae and sclera, EOMI, PERRLA. HENT head/neck; left posterior occiput hematoma and laceration. 10 cm left parietal occipital laceration present. moist mucus membranes, no epistaxis, neck supple/ no meningismus, no raccoon eyes. Respiratory clear to auscultation bilaterally, normal breath sounds, no respiratory distress, no wheezing. Cardiovascular rate normal, regular rhythm, no murmur, no edema, distal pulses normal. Gastrointestinal soft, non-tender, no rebound, no guarding, normal bowel sounds, no distension, no pulsatile mass. Genitourinary no CVA tenderness. Musculoskeletal chronic lower extremity edema bilaterally, no midline vertebral tenderness, full range of motion, no calf swelling, no tenderness of extremities, no meningismus, good pulses, neurovascularly intact. Skin pink, warm, & dry, no rash, skin atraumatic. Neurologic awake, alert and oriented x 3, AAOx3, moves all 4 extremities equally, motor intact, sensory intact, CN II-XII intact, normal cerebellar, normal vision, normal speech. Psychiatric normal mood/affect. Heme/Lymph/Immune no lymphadenopathy. Differential Diagnosis: Includes but is not limited to in a particular order closed-head injury, intracranial bleed, skull fracture, scalp hematoma. Laceration. Medical Decision Making: Plan for this patient CT scan head without contrast and CT cervical spine without contrast for trauma. Given scalp hematoma laceration. Basic blood work. Re-evaluation: EKG interpretation by me on record in [employer] system. Impression time of EKG 3:11 a.m., sinus rhythm rate of 56, left bundle-branch block present. When compared to the patient's old EKG is very similar in appearance. No acute ischemic changes appreciated or signs of cardiac arrhythmia. CT scan head without contrast and CT cervical spine without contrast for trauma are negative for acute traumatic injury. Called to me by Dr. Ahuja. Laceration Repair Procedure: Verbal Consent was obtained, Under sterile conditions, left parietal occipital 10 cm laceration The wound was copiously irrigated with sterile fluid, the wound was explored for foreign bodies there were none visualized, the wound was explored with a sterile glove to the base. There are no deep structures involved, including no arterial injury. THIRTEEN STUART were placed in this patient's laceration. He had good close approximation of the wound edges. He Tolerated this well. 0441: Patient tolerated staple placement very well. Plan will be for stuart removed in 7 days. Patient is eager to be discharged home. He feels well. Denies any complaints at this time. CT scan of his head and neck without contrast for trauma were negative. Chest x-ray reviewed. He is in his left lung feared similar to previous chest x -ray. At the end of November recently had a aspiration pneumonia, empyema with chest tube. 0455: Patient ambulated well throughout the emergency room. Stable gait with a walker. Patient like to be discharged back to [facility]. at bedside. Does not want to be admitted. Laceration repaired. Cody need to be removed in 7 days. He understands. 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, a-fib, cardiac stent 08/28, CABG, HTN, AVR, Sciatica, Asthma, - Social History Smoking Status: Never smoked Constitutional: Initial Vital Signs Temperature (C) 36.6 C 12/23/17 02:45 Heart Rate 61 12/23/17 02:45 Respiratory Rate 16 12/23/17 02:45 Blood Pressure 123/73 H 12/23/17 02:45 O2 Sat (%) 90 L 12/23/17 02:45 O2 Delivery Mode Room Air O2 (L/minute) 2 Allergies/Adverse Reactions: codeine Allergy (Intermediate, Verified 12/23/17 02:50) Home Medications: Medication Instructions Recorded Aspirin [Aspirin 325 mg (*)] 325 mg PO DAILY 10/05/17 Atorvastatin Calcium [Lipitor 40 40 mg PO DAILY@10/05/17 mg (*)] Calcium/D3/Mag Ox/Bench Boring Machine Operator/Hiro/Zn 1 each PO DAILY 10/05/17 [Caltrate+D3 Plus Mineral Minis] Carvedilol [Coreg (*)] 6.25 mg PO BIDMEAL 10/05/17 Digoxin 250 mcg PO DAILY@10/05/17 Multivitamins [Multivitamin (*)] 1 each PO DAILY 10/05/17 Omeprazole 20 mg PO DAILY@10/05/17 Sennosides/Docusate Sodium 1 each PO PRN PRN 10/05/17 [Senna-Docusate Sodium Tablet] Tamsulosin HCl [Flomax 0.4 MG (*)] 0.4 mg PO DAILY@17 10/05/17 Acetaminophen [Tylenol 325mg (*)] 650 mg PO Q4HRS PRN tab 10/09/17 Albuterol [Proventil Inhaler HFA 2 puffs IH Q4 PRN #1 mdi 10/09/17 (*)] Clopidogrel Bisulfate [Clopidogrel] 75 mg PO DAILY 11/30/17 Fluticasone Hfa 220 Mcg [Flovent 1 puffs IH BID 11/30/17 220 MCG Hfa MDI (*)] guaiFENesin [Mucinex 600 MG (*)] 1,200 mg PO BID PRN 11/30/17 Amoxicillin/Clavulanate Pot 875 mg PO BID #14 tab 09/28/18 [Augmentin 875 MG TAB (*)] Medical Decision Making - Data Points Laboratory Results: Laboratory Results 12/23/17 03:12 12/23/17 03:12 12/23/17 12/23/17 12/23/17 03:20 03:12 03:12 WBC RBC Hgb Hct MCV MCH MCHC RDW Plt Count MPV Neut % (Auto) Lymph % (Auto) Doddridge % (Auto) Eos % (Auto) Baso % (Auto) Nucleat RBC Rel Count Absolute Neuts (auto) Absolute Lymphs (auto) Absolute Monos (auto) Absolute Eos (auto) Absolute Basos (auto) Absolute Nucleated RBC Immature Gran % Immature Gran # Platelet Estimate Polychromasia Oval Macrocytes Echinocytes Elliptocytes Acanthocytes (Spur) Keratocytes Schistocytes PT 14.8 SEC SEC (12.0-15.0) INR 1.14 (0.83-1.16) APTT 41.7 SEC H SEC (23.0-38.0) Sodium 133 mEq/L L mEq/L (135-145) Potassium 4.7 mEq/L mEq/L (3.3-5.0) Chloride 100 mEq/L mEq/L (97-110) Carbon Dioxide 26 mEq/l mEq/l (22-31) Anion Gap 7 mEq/L mEq/L (6-14) BUN 19 mg/dL mg/dL (7-23) Creatinine 0.9 mg/dL mg/dL (0.7-1.3) Estimated GFR > 60 Glucose 105 mg/dL H mg/dL (70-100) Calcium 8.8 mg/dL mg/dL (8.5-10.4) POC Troponin I 0.03 ng/mL ng/mL (0.00-0.08) 12/23/17 03:12 WBC 11.17 10^3/uL H 10^3/uL (3.80-9.50) RBC 3.60 10^6/uL L 10^6/uL (4.40-6.38) Hgb 9.2 g/dL L g/dL (13.7-17.5) Hct 29.1 % L % (40.0-51.0) MCV 80.8 fL L fL (81.5-99.8) MCH 25.6 pg L pg (27.9-34.1) MCHC 31.6 g/dL L g/dL (32.4-36.7) RDW 22.7 % H % (11.5-15.2) Plt Count 452 10^3/uL H 10^3/uL (150-400) MPV 8.5 fL L fL (8.7-11.7) Neut % (Auto) 70.1 % % (39.3-74.2) Lymph % (Auto) 11.7 % L % (15.0-45.0) Doddridge % (Auto) 12.4 % % (4.5-13.0) Eos % (Auto) 3.5 % % (0.6-7.6) Baso % (Auto) 0.6 % % (0.3-1.7) Nucleat RBC Rel Count 0.0 % % (0.0-0.2) Absolute Neuts (auto) 7.83 10^3/uL H 10^3/uL (1.70-6.50) Absolute Lymphs (auto) 1.31 10^3/uL 10^3/uL (1.00-3.00) Absolute Monos (auto) 1.38 10^3/uL H 10^3/uL (0.30-0.80) Absolute Eos (auto) 0.39 10^3/uL 10^3/uL (0.03-0.40) Absolute Basos (auto) 0.07 10^3/uL 10^3/uL (0.02-0.10) Absolute Nucleated RBC 0.00 10^3/uL 10^3/uL (0-0.01) Immature Gran % 1.7 % H % (0.0-1.1) Immature Gran # 0.19 10^3/uL H 10^3/uL (0.00-0.10) Platelet Estimate INCREASED H (ADEQ) Polychromasia 1+ H Oval Macrocytes 1+ H Echinocytes 1+ H Elliptocytes 1+ H Acanthocytes (Spur) 1+ H Keratocytes 1+ H Schistocytes 1+ H PT INR APTT Sodium Potassium Chloride Carbon Dioxide Anion Gap BUN Creatinine Estimated GFR Glucose Calcium POC Troponin I Point of Care Test Results: Chemistry 12/23/17 03:20 POC Troponin I 0.03 ng/mL ng/mL (0.00-0.08) Departure - Departure Disposition: Home, Routine, Self-Care Clinical Impression: Fall Qualifiers: Encounter type: initial encounter Qualified Code(s): W19.XXXA - Unspecified fall, initial encounter Scalp laceration Qualifiers: Encounter type: initial encounter Qualified Code(s): S01.01XA - Laceration without foreign body of scalp, initial encounter Condition: Good Instructions: Laceration (ED), Fall Prevention for Older Adults (ED), Staple Care (ED), Fall Prevention (ED) Additional Instructions: 1. Stuart need to be removed in 7 days. 2. Return to the emergency room if you have worsening symptoms questions or concerns. Referrals: Patient,NotPresent [Unknown] - As per Instructions
[2017-12-23 03:24] LABS: PLATELET COUNT 452 10^3/uL (150-400)
[2017-12-23 03:34] LABS: INR 1.14 (0.83-1.16); PROTIME(PATIENT) 14.8 SEC (12.0-15.0)
[2017-12-23 05:49] VITALS: BP 128/74
--- NOTE | 2017-12-23 08:21 | CPEKG ---
Test Reason : OPEN Blood Pressure : / mmHG Vent. Rate : 056 BPM Atrial Rate : 000 BPM P-R Int : 253 ms QRS Dur : 151 ms QT Int : 453 ms P-R-T Axes : 000 -52 121 degrees QTc Int : 438 ms Sinus rhythm Prolonged IL interval Probable left atrial enlargement Left bundle branch block Confirmed by Mickey Schwartz ([id number]) on 12/23/2017 8:19:43 AM Referred By: Confirmed By:Mickey Schwartz
== END 2017-12-23 05:48 | disposition home or self-care (01) ==
LOC: EDUNIT#
PROC: 0HQ0XZZ Repair Scalp Skin, External Approach (ICD-10-PCS; principal; 2017-12-23)
DX: S01.01XA Laceration without foreign body of scalp, initial encounter (principal); W19.XXXA Unspecified fall, initial encounter; Y92.129 Unspecified place in nursing home as the place of occurrence of the external cause; Y99.8 Other external cause status; I44.7 Left bundle-branch block, unspecified; I48.91 Unspecified atrial fibrillation; Z79.02 Long term (current) use of antithrombotics/antiplatelets; Z95.2 Presence of prosthetic heart valve
CPT/HCPCS: 84484-PO